=== PATIENT | male | born 1945 | race Caucasian/White ===

== ENCOUNTER 2017-06-27 10:44 | Inpatient (IN) | payer OTHER ==
--- OUTSIDE RECORDS SUMMARY | 2017-06-27 10:47 | XMS REPORT ---
:1945 [facility] Address [address] [place] [address] [address] [place] [address] Care Team Providers Name Role Phone Ariel MORLEY Unavailable Unavailable Problems This patient has no known problems. Allergies, Adverse Reactions, Alerts This patient has no known allergies or adverse reactions. Medications This patient has no known medications. Results Test Description Test Time Test Comments Text Results Atomic Results Result Comments POCT-GLUCOSE METER 2016-07-12 13:08:00 Test Item Value Reference Range Comments POC-GLUCOSE METER (BEAKER) (test 193 mg/dL 70-[address] [facility] [address] [place] [address] bkst=8574) [facility] [address] POCT-GLUCOSE [id number] 08:08:00 Test Item Value Reference Range Comments POC-GLUCOSE METER (BEAKER) 98 mg/dL 70-110 TESTED AT [address] (test ewzp=2745) [facility] [address] BASIC METABOLIC [id number] 05:48:00 Test Item Value Reference Range Comments SODIUM (BEAKER) (test 138 meq/L 136-145 evwu=071) POTASSIUM (BEAKER) (test 4.6 meq/L 3.5-5.1 ukmr=266) CHLORIDE (BEAKER) (test 102 meq/L 98-107 bxgr=490) CO2 (BEAKER) (test 25 meq/L 22-29 qama=361) BLOOD UREA NITROGEN 50 mg/dL 7-21 (BEAKER) (test grho=075) CREATININE (BEAKER) (test 3.24 mg/dL 0.57-1.25 tuqq=153) GLUCOSE RANDOM (BEAKER) 91 mg/dL 70-105 (test wpoi=604) CALCIUM (BEAKER) (test 8.8 mg/dL 8.4-10.2 uamo=137) EGFR (BEAKER) (test 19 mL/min/1.73 sq m ESTIMATED GFR IS NOT tmcx=0970) ACCURATE CREATININE CLEARANCE IN PREDICTING GLOMERULAR FILTRATION RATE. ESTIMATED GFR IS NOT APPLICABLE FOR DIALYSIS PATIENTS. [id number] 05:37:00 Test Item Value Reference Range Comments PHOSPHORUS (BEAKER) (test sryk=620) 4.2 mg/dL 2.3-4.7 [id number] 05:37:00 Test Item Value Reference Range Comments MAGNESIUM (BEAKER) (test mbcw=721) 2.6 mg/dL 1.6-2.6 CBC (HEMOGRAM ONLY)2016-07-12 05:15:00 Test Item Value Reference Range Comments WHITE BLOOD CELL COUNT (BEAKER) (test fuys=862) 16.7 K/ L 4.0-10.0 RED BLOOD CELL COUNT (BEAKER) (test fbba=652) 4.49 M/ L 4.20-5.80 HEMOGLOBIN (BEAKER) (test tsqj=470) 12.0 GM/DL 13.0-16.8 HEMATOCRIT (BEAKER) (test qqow=170) 37.9 % 40.0-50.0 MEAN CORPUSCULAR VOLUME (BEAKER) (test kqtd=756) 84.5 fL 82.0-98.0 MEAN CORPUSCULAR HEMOGLOBIN (BEAKER) (test 26.7 pg 27.0-33.0 bvfe=635) MEAN CORPUSCULAR HEMOGLOBIN CONC (BEAKER) (test 31.6 GM/DL 32.0-36.0 scpi=135) RED CELL DISTRIBUTION WIDTH (BEAKER) (test 18.8 % 10.3-14.2 llai=753) PLATELET COUNT (BEAKER) (test fzfl=591) 299 K/CU MM 150-430 MEAN PLATELET VOLUME (BEAKER) (test ater=075) 8.7 fL 6.5-10.5 NUCLEATED RED BLOOD CELLS (BEAKER) (test 0 /100 WBC 0-0 hqpi=697) 0.000.510.000.000.750.000.000.000.00POCT-GLUCOSE [id number] 21:31:00 Test Item Value Reference Range Comments POC-GLUCOSE METER (BEAKER) 219 mg/dL 70-[address] [facility] [address] [facility] (test ihyi=3652) [facility] [address] POCT-GLUCOSE [id number] 16:56:00 Test Item Value Reference Range Comments POC-GLUCOSE METER (BEAKER) 92 mg/dL 70-110 TESTED AT [address] (test hwxj=2592) [place] [address] POCT-GLUCOSE [id number] 11:51:00 Test Item Value Reference Range Comments POC-GLUCOSE METER (BEAKER) 222 mg/dL 70-110 TESTED AT [address] (test hayp=9134) [place] [address] BASIC METABOLIC [id number] 11:48:00 Test Item Value Reference Range Comments SODIUM (BEAKER) (test 136 meq/L 136-145 kfpv=370) POTASSIUM (BEAKER) (test 4.7 meq/L 3.5-5.1 Specimen slightly uxrw=906) hemolyzed CHLORIDE (BEAKER) (test 103 meq/L 98-107 pyzm=279) CO2 (BEAKER) (test 20 meq/L 22-29 hpqk=138) BLOOD UREA NITROGEN 55 mg/dL 7-21 (BEAKER) (test qjsi=059) CREATININE (BEAKER) (test 3.37 mg/dL 0.57-1.25 Specimen slightly kron=576) hemolyzed GLUCOSE RANDOM (BEAKER) 206 mg/dL 70-105 (test ycob=085) CALCIUM (BEAKER) (test 8.7 mg/dL 8.4-10.2 ksai=334) EGFR (BEAKER) (test 18 mL/min/1.73 sq m ESTIMATED GFR IS NOT ffuq=9496) ACCURATE CREATININE CLEARANCE IN PREDICTING GLOMERULAR FILTRATION RATE. ESTIMATED GFR IS NOT APPLICABLE FOR DIALYSIS PATIENTS. [id number] 11:48:00 Test Item Value Reference Range Comments PHOSPHORUS (BEAKER) (test 3.7 mg/dL 2.3-4.7 Specimen slightly hemolyzed iucd=331) POCT-GLUCOSE [id number] 08:02:00 Test Item Value Reference Range Comments POC-GLUCOSE METER (BEAKER) 100 mg/dL 70-110 TESTED AT [address] (test kyfc=7002) [place] [address] CBC (HEMOGRAM ONLY)2016-07-11 07:45:00 Test Item Value Reference Range Comments WHITE BLOOD CELL COUNT (BEAKER) (test wdfh=300) 21.2 K/ L 4.0-10.0 RED BLOOD CELL COUNT (BEAKER) (test uwpb=615) 4.52 M/ L 4.20-5.80 HEMOGLOBIN (BEAKER) (test zqgx=246) 12.1 GM/DL 13.0-16.8 HEMATOCRIT (BEAKER) (test slov=840) 38.0 % 40.0-50.0 MEAN CORPUSCULAR VOLUME (BEAKER) (test ugwz=391) 84.2 fL 82.0-98.0 MEAN CORPUSCULAR HEMOGLOBIN (BEAKER) (test 26.8 pg 27.0-33.0 jupi=486) MEAN CORPUSCULAR HEMOGLOBIN CONC (BEAKER) (test 31.8 GM/DL 32.0-36.0 wugo=377) RED CELL DISTRIBUTION WIDTH (BEAKER) (test 18.2 % 10.3-14.2 klis=881) PLATELET COUNT (BEAKER) (test euom=066) 256 K/CU MM 150-430 MEAN PLATELET VOLUME (BEAKER) (test vqhy=533) 8.8 fL 6.5-10.5 NUCLEATED RED BLOOD CELLS (BEAKER) (test 0 /100 WBC 0-0 wsxi=360) 0.000.510.000.000.810.000.000.000.00POCT-GLUCOSE [id number] 21:53:00 Test Item Value Reference Range Comments POC-GLUCOSE METER (BEAKER) 146 mg/dL 70-110 TESTED AT [address] (test abiu=9483) [place] [id number] POCT-GLUCOSE [id number] 17:34:00 Test Item Value Reference Range Comments POC-GLUCOSE METER (BEAKER) 83 mg/dL 70-110 TESTED AT [address] (test omol=8027) [facility] [address] POCT-GLUCOSE [id number] 12:03:00 Test Item Value Reference Range Comments POC-GLUCOSE METER (BEAKER) 276 mg/dL 70-110 TESTED AT [address] (test sinx=9877) [place] [address] POCT-GLUCOSE [id number] 07:42:00 Test Item Value Reference Range Comments POC-GLUCOSE METER (BEAKER) 117 mg/dL 70-110 TESTED AT [address] (test bywi=9714) [place] [address] BASIC METABOLIC [id number] 07:13:00 Test Item Value Reference Range Comments SODIUM (BEAKER) (test 138 meq/L 136-145 jsfu=056) POTASSIUM (BEAKER) (test 4.5 meq/L 3.5-5.1 nixe=314) CHLORIDE (BEAKER) (test 101 meq/L 98-107 ncdf=943) CO2 (BEAKER) (test 25 meq/L 22-29 syoy=131) BLOOD UREA NITROGEN 65 mg/dL 7-21 (BEAKER) (test vhom=670) CREATININE (BEAKER) (test 3.78 mg/dL 0.57-1.25 laap=793) GLUCOSE RANDOM (BEAKER) 110 mg/dL 70-105 (test vshy=074) CALCIUM (BEAKER) (test 8.8 mg/dL 8.4-10.2 mhgb=630) EGFR (BEAKER) (test 16 mL/min/1.73 sq m ESTIMATED GFR IS NOT bryt=3166) ACCURATE CREATININE CLEARANCE IN PREDICTING GLOMERULAR FILTRATION RATE. ESTIMATED GFR IS NOT APPLICABLE FOR DIALYSIS PATIENTS. [id number] 07:10:00 Test Item Value Reference Range Comments PHOSPHORUS (BEAKER) (test ghix=959) 3.9 mg/dL 2.3-4.7 B-TYPE NATRIURETIC FACTOR (BNP)2016-07-10 07:08:00 Test Item Value Reference Range Comments B-TYPE NATRIURETIC PEPTIDE (BEAKER) (test 510 pg/mL 0-100 csqg=187) BLOOD [id number] 06:00:00 Test Item Value Reference Range Comments CULTURE (BEAKER) (test sarv=0383) No growth in 5 days CBC (HEMOGRAM ONLY)2016-07-10 05:09:00 Test Item Value Reference Range Comments WHITE BLOOD CELL COUNT (BEAKER) (test evgr=363) 17.9 K/ L 4.0-10.0 RED BLOOD CELL COUNT (BEAKER) (test trlb=086) 4.53 M/ L 4.20-5.80 HEMOGLOBIN (BEAKER) (test wnsj=077) 11.8 GM/DL 13.0-16.8 HEMATOCRIT (BEAKER) (test kiyi=971) 38.0 % 40.0-50.0 MEAN CORPUSCULAR VOLUME (BEAKER) (test jtly=419) 83.9 fL 82.0-98.0 MEAN CORPUSCULAR HEMOGLOBIN (BEAKER) (test 26.0 pg 27.0-33.0 rtbm=807) MEAN CORPUSCULAR HEMOGLOBIN CONC (BEAKER) (test 31.0 GM/DL 32.0-36.0 hioo=960) RED CELL DISTRIBUTION WIDTH (BEAKER) (test 19.5 % 10.3-14.2 wzwe=042) PLATELET COUNT (BEAKER) (test exne=441) 272 K/CU MM 150-430 MEAN PLATELET VOLUME (BEAKER) (test jatx=052) 8.9 fL 6.5-10.5 NUCLEATED RED BLOOD CELLS (BEAKER) (test 0 /100 WBC 0-0 asze=680) 0.000.580.000.000.780.000.000.000.00POCT-GLUCOSE [id number] 21:43:00 Test Item Value Reference Range Comments POC-GLUCOSE METER (BEAKER) 120 mg/dL 70-110 TESTED AT [address] (test gwdj=9312) [place] [address] POCT-GLUCOSE [id number] 16:58:00 Test Item Value Reference Range Comments POC-GLUCOSE METER (BEAKER) 125 mg/dL 70-110 TESTED AT [address] (test cfpn=9171) [place] [address] POCT-GLUCOSE [id number] 12:56:00 Test Item Value Reference Range Comments POC-GLUCOSE METER (BEAKER) 149 mg/dL 70-110 TESTED AT [address] (test ycfj=5082) [place] [address] POCT-GLUCOSE [id number] 08:47:00 Test Item Value Reference Range Comments POC-GLUCOSE METER (BEAKER) 132 mg/dL 70-110 TESTED AT [address] (test xjzv=0738) [place] [address] BASIC METABOLIC [id number] 06:42:00 Test Item Value Reference Range Comments SODIUM (BEAKER) (test 139 meq/L 136-145 dzaa=750) POTASSIUM (BEAKER) (test 4.8 meq/L 3.5-5.1 lyzd=159) CHLORIDE (BEAKER) (test 101 meq/L 98-107 fofz=520) CO2 (BEAKER) (test 24 meq/L 22-29 catu=212) BLOOD UREA NITROGEN 74 mg/dL 7-21 (BEAKER) (test vkvb=658) CREATININE (BEAKER) (test 4.11 mg/dL 0.57-1.25 ciaz=581) GLUCOSE RANDOM (BEAKER) 103 mg/dL 70-105 (test endd=719) CALCIUM (BEAKER) (test 8.8 mg/dL 8.4-10.2 ekwi=647) EGFR (BEAKER) (test 14 mL/min/1.73 sq m ESTIMATED GFR IS NOT jjff=4514) ACCURATE CREATININE CLEARANCE IN PREDICTING GLOMERULAR FILTRATION RATE. ESTIMATED GFR IS NOT APPLICABLE FOR DIALYSIS PATIENTS. [id number] 06:38:00 Test Item Value Reference Range Comments PHOSPHORUS (BEAKER) (test nrps=354) 4.7 mg/dL 2.3-4.7 [id number] 06:38:00 Test Item Value Reference Range Comments MAGNESIUM (BEAKER) (test zuzo=543) 2.3 mg/dL 1.6-2.6 CBC (HEMOGRAM ONLY)2016-07-09 06:02:00 Test Item Value Reference Range Comments WHITE BLOOD CELL COUNT (BEAKER) (test ipia=598) 20.0 K/ L 4.0-10.0 RED BLOOD CELL COUNT (BEAKER) (test gmkq=053) 4.66 M/ L 4.20-5.80 HEMOGLOBIN (BEAKER) (test svye=482) 12.2 GM/DL 13.0-16.8 HEMATOCRIT (BEAKER) (test bqof=519) 38.9 % 40.0-50.0 MEAN CORPUSCULAR VOLUME (BEAKER) (test mqea=077) 83.6 fL 82.0-98.0 MEAN CORPUSCULAR HEMOGLOBIN (BEAKER) (test 26.2 pg 27.0-33.0 oihk=060) MEAN CORPUSCULAR HEMOGLOBIN CONC (BEAKER) (test 31.3 GM/DL 32.0-36.0 ffyh=260) RED CELL DISTRIBUTION WIDTH (BEAKER) (test 18.3 % 10.3-14.2 rczk=666) PLATELET COUNT (BEAKER) (test wcue=217) 257 K/CU MM 150-430 MEAN PLATELET VOLUME (BEAKER) (test nznx=693) 9.1 fL 6.5-10.5 NUCLEATED RED BLOOD CELLS (BEAKER) (test 0 /100 WBC 0-0 gxfy=266) 0.000.530.000.000.760.000.000.000.00POCT-GLUCOSE [id number] 20:58:00 Test Item Value Reference Range Comments POC-GLUCOSE METER (BEAKER) 131 mg/dL 70-110 TESTED AT [address] (test diyd=3016) [facility] [address] POCT-GLUCOSE [id number] 17:15:00 Test Item Value Reference Range Comments POC-GLUCOSE METER (BEAKER) 192 mg/dL 70-110 TESTED AT [address] (test cfqw=5332) [facility] [address] POCT-GLUCOSE [id number] 12:53:00 Test Item Value Reference Range Comments POC-GLUCOSE METER (BEAKER) 135 mg/dL 70-110 TESTED AT [address] (test qqma=7770) [facility] [address] POCT-GLUCOSE [id number] 08:48:00 Test Item Value Reference Range Comments POC-GLUCOSE METER (BEAKER) 113 mg/dL 70-110 TESTED AT [address] (test glmp=5087) [facility] [address] POCT-GLUCOSE [id number] 07:42:00 Test Item Value Reference Range Comments POC-GLUCOSE METER (BEAKER) 122 mg/dL 70-110 TESTED AT [address] (test yxdb=4247) [facility] [address] CBC (HEMOGRAM ONLY)2016-07-08 07:02:00 Test Item Value Reference Range Comments WHITE BLOOD CELL COUNT (BEAKER) (test mdpy=151) 21.1 K/ L 4.0-10.0 RED BLOOD CELL COUNT (BEAKER) (test dnub=139) 4.69 M/ L 4.20-5.80 HEMOGLOBIN (BEAKER) (test onwy=558) 12.1 GM/DL 13.0-16.8 HEMATOCRIT (BEAKER) (test tlwo=076) 39.0 % 40.0-50.0 MEAN CORPUSCULAR VOLUME (BEAKER) (test ecyw=911) 83.2 fL 82.0-98.0 MEAN CORPUSCULAR HEMOGLOBIN (BEAKER) (test 25.8 pg 27.0-33.0 wwng=161) MEAN CORPUSCULAR HEMOGLOBIN CONC (BEAKER) (test 31.0 GM/DL 32.0-36.0 qqwa=511) RED CELL DISTRIBUTION WIDTH (BEAKER) (test 18.1 % 10.3-14.2 wiqk=537) PLATELET COUNT (BEAKER) (test rvym=974) 254 K/CU MM 150-430 MEAN PLATELET VOLUME (BEAKER) (test btth=588) 9.1 fL 6.5-10.5 NUCLEATED RED BLOOD CELLS (BEAKER) (test 0 /100 WBC 0-0 wdfv=966) 0.000.600.000.000.800.000.000.000.00BASIC METABOLIC [id number] 06:26:00 Test Item Value Reference Range Comments SODIUM (BEAKER) (test 137 meq/L 136-145 qdnf=693) POTASSIUM (BEAKER) (test 5.3 meq/L 3.5-5.1 auyi=455) CHLORIDE (BEAKER) (test 102 meq/L 98-107 wokz=671) CO2 (BEAKER) (test 24 meq/L 22-29 qebu=333) BLOOD UREA NITROGEN 69 mg/dL 7-21 (BEAKER) (test iwoj=398) CREATININE (BEAKER) (test 3.86 mg/dL 0.57-1.25 tagu=535) GLUCOSE RANDOM (BEAKER) 112 mg/dL 70-105 (test yzsb=890) CALCIUM (BEAKER) (test 8.8 mg/dL 8.4-10.2 djhd=496) EGFR (BEAKER) (test 16 mL/min/1.73 sq m ESTIMATED GFR IS NOT tbhd=9880) ACCURATE CREATININE CLEARANCE IN PREDICTING GLOMERULAR FILTRATION RATE. ESTIMATED GFR IS NOT APPLICABLE FOR DIALYSIS PATIENTS. [id number] 06:12:00 Test Item Value Reference Range Comments PHOSPHORUS (BEAKER) (test ohrt=835) 4.4 mg/dL 2.3-4.7 [id number] 06:12:00 Test Item Value Reference Range Comments MAGNESIUM (BEAKER) (test dvxf=764) 2.2 mg/dL 1.6-2.6 POCT-GLUCOSE [id number] 20:59:00 Test Item Value Reference Range Comments POC-GLUCOSE METER (BEAKER) 159 mg/dL 70-110 TESTED AT [address] (test rfeo=5937) [place] [id number] POCT-GLUCOSE [id number] 18:17:00 Test Item Value Reference Range Comments POC-GLUCOSE METER (BEAKER) 139 mg/dL 70-110 TESTED AT [address] (test nztb=5835) [place] [address] POCT-GLUCOSE [id number] 16:37:00 Test Item Value Reference Range Comments POC-GLUCOSE METER (BEAKER) 171 mg/dL 70-110 TESTED AT [address] (test qowp=3443) [place] [address] POCT-GLUCOSE [id number] 12:18:00 Test Item Value Reference Range Comments POC-GLUCOSE METER (BEAKER) 190 mg/dL 70-110 TESTED AT [address] (test yqsj=0015) [place] [address] HEMOGLOBIN [id number] 10:02:00 Test Item Value Reference Range Comments HEMOGLOBIN A1C (BEAKER) (test flfc=601) 7.9 % 4.3-6.1 POCT-GLUCOSE [id number] 08:12:00 Test Item Value Reference Range Comments POC-GLUCOSE METER (BEAKER) 103 mg/dL 70-110 TESTED AT [address] (test ulhj=0207) [place] [id number] CBC (HEMOGRAM ONLY)2016-07-07 05:16:00 Test Item Value Reference Range Comments WHITE BLOOD CELL COUNT (BEAKER) (test gvno=874) 21.4 K/ L 4.0-10.0 RED BLOOD CELL COUNT (BEAKER) (test mxwv=832) 4.73 M/ L 4.20-5.80 HEMOGLOBIN (BEAKER) (test olqb=598) 12.2 GM/DL 13.0-16.8 HEMATOCRIT (BEAKER) (test ynpv=159) 39.4 % 40.0-50.0 MEAN CORPUSCULAR VOLUME (BEAKER) (test qjrh=290) 83.1 fL 82.0-98.0 MEAN CORPUSCULAR HEMOGLOBIN (BEAKER) (test 25.8 pg 27.0-33.0 aewl=324) MEAN CORPUSCULAR HEMOGLOBIN CONC (BEAKER) (test 31.0 GM/DL 32.0-36.0 cfrw=203) RED CELL DISTRIBUTION WIDTH (BEAKER) (test 18.1 % 10.3-14.2 hxzz=051) PLATELET COUNT (BEAKER) (test epur=942) 248 K/CU MM 150-430 MEAN PLATELET VOLUME (BEAKER) (test kfnf=757) 9.2 fL 6.5-10.5 NUCLEATED RED BLOOD CELLS (BEAKER) (test 0 /100 WBC 0-0 ffgo=112) 0.000.590.000.000.770.000.000.000.00BASIC METABOLIC [id number] 05:03:00 Test Item Value Reference Range Comments SODIUM (BEAKER) (test 135 meq/L 136-145 tpug=214) POTASSIUM (BEAKER) (test 5.4 meq/L 3.5-5.1 caui=049) CHLORIDE (BEAKER) (test 102 meq/L 98-107 xswm=907) CO2 (BEAKER) (test 22 meq/L 22-29 cngk=209) BLOOD UREA NITROGEN 60 mg/dL 7-21 (BEAKER) (test whtz=632) CREATININE (BEAKER) (test 3.28 mg/dL 0.57-1.25 kepw=810) GLUCOSE RANDOM (BEAKER) 127 mg/dL 70-105 (test pnar=064) CALCIUM (BEAKER) (test 8.9 mg/dL 8.4-10.2 yooa=267) EGFR (BEAKER) (test 19 mL/min/1.73 sq m ESTIMATED GFR IS NOT nims=5642) ACCURATE CREATININE CLEARANCE IN PREDICTING GLOMERULAR FILTRATION RATE. ESTIMATED GFR IS NOT APPLICABLE FOR DIALYSIS PATIENTS. [id number] 05:02:00 Test Item Value Reference Range Comments MAGNESIUM (BEAKER) (test psko=970) 2.0 mg/dL 1.6-2.6 [id number] 05:02:00 Test Item Value Reference Range Comments PHOSPHORUS (BEAKER) (test ezpr=266) 4.2 mg/dL 2.3-4.7 BASIC METABOLIC [id number] 22:00:00 Test Item Value Reference Range Comments SODIUM (BEAKER) (test 135 meq/L 136-145 jkqb=547) POTASSIUM (BEAKER) (test 4.8 meq/L 3.5-5.1 mcjw=819) CHLORIDE (BEAKER) (test 101 meq/L 98-107 ohkj=708) CO2 (BEAKER) (test 24 meq/L 22-29 dvcq=734) BLOOD UREA NITROGEN 60 mg/dL 7-21 (BEAKER) (test okvf=444) CREATININE (BEAKER) (test 3.17 mg/dL 0.57-1.25 nqaq=410) GLUCOSE RANDOM (BEAKER) 120 mg/dL 70-105 (test ynry=143) CALCIUM (BEAKER) (test 8.7 mg/dL 8.4-10.2 gbtj=906) EGFR (BEAKER) (test 20 mL/min/1.73 sq m ESTIMATED GFR IS NOT ksow=2960) ACCURATE CREATININE CLEARANCE IN PREDICTING GLOMERULAR FILTRATION RATE. ESTIMATED GFR IS NOT APPLICABLE FOR DIALYSIS PATIENTS. [id number] 21:59:00 Test Item Value Reference Range Comments PHOSPHORUS (BEAKER) (test rdxw=851) 4.1 mg/dL 2.3-4.7 POCT-GLUCOSE [id number] 21:10:00 Test Item Value Reference Range Comments POC-GLUCOSE METER (BEAKER) 118 mg/dL 70-110 TESTED AT [address] (test yloz=6718) [place] [address] POCT-GLUCOSE [id number] 17:17:00 Test Item Value Reference Range Comments POC-GLUCOSE METER (BEAKER) 213 mg/dL 70-110 TESTED AT [address] (test tkfj=4087) [place] [address] [id number] 14:21:00 Test Item Value Reference Range Comments POTASSIUM (BEAKER) (test pwby=883) 5.4 meq/L 3.5-5.1 POCT-GLUCOSE [id number] 12:26:00 Test Item Value Reference Range Comments POC-GLUCOSE METER (BEAKER) 118 mg/dL 70-110 TESTED AT [address] (test onnw=4375) [place] [address] BASIC METABOLIC [id number] 10:25:00 Test Item Value Reference Range Comments SODIUM (BEAKER) (test 135 meq/L 136-145 pnbz=645) POTASSIUM (BEAKER) (test 5.0 meq/L 3.5-5.1 tuzy=224) CHLORIDE (BEAKER) (test 105 meq/L 98-107 xjee=874) CO2 (BEAKER) (test 21 meq/L 22-29 jfbn=832) BLOOD UREA NITROGEN 53 mg/dL 7-21 (BEAKER) (test csim=540) CREATININE (BEAKER) (test 2.86 mg/dL 0.57-1.25 fdfy=672) GLUCOSE RANDOM (BEAKER) 105 mg/dL 70-105 (test kmna=436) CALCIUM (BEAKER) (test 8.7 mg/dL 8.4-10.2 bzqi=917) EGFR (BEAKER) (test 22 mL/min/1.73 sq m ESTIMATED GFR IS NOT epvu=8589) ACCURATE CREATININE CLEARANCE IN PREDICTING GLOMERULAR FILTRATION RATE. ESTIMATED GFR IS NOT APPLICABLE FOR DIALYSIS PATIENTS. [id number] 10:24:00 Test Item Value Reference Range Comments PHOSPHORUS (BEAKER) (test hkfi=866) 3.4 mg/dL 2.3-4.7 POCT-GLUCOSE [id number] 08:43:00 Test Item Value Reference Range Comments POC-GLUCOSE METER (BEAKER) 93 mg/dL 70-[address] [facility] [address] [facility] (test nmfl=1653) [facility] [address] [id number] 06:11:00 Test Item Value Reference Range Comments PARTIAL THROMBOPLASTIN TIME (BEAKER) (test 63.0 seconds 22.5-36.0 ogez=622) BASIC METABOLIC [id number] 04:24:00 Test Item Value Reference Range Comments SODIUM (BEAKER) (test 134 meq/L 136-145 gxke=356) POTASSIUM (BEAKER) (test 5.3 meq/L 3.5-5.1 faji=717) CHLORIDE (BEAKER) (test 105 meq/L 98-107 ralk=511) CO2 (BEAKER) (test 17 meq/L 22-29 inni=372) BLOOD UREA NITROGEN 55 mg/dL 7-21 (BEAKER) (test ojxm=792) CREATININE (BEAKER) (test 2.96 mg/dL 0.57-1.25 hnvy=628) GLUCOSE RANDOM (BEAKER) 111 mg/dL 70-105 (test akgb=903) CALCIUM (BEAKER) (test 8.7 mg/dL 8.4-10.2 zlkd=247) EGFR (BEAKER) (test 21 mL/min/1.73 sq m ESTIMATED GFR IS NOT gkxj=4908) ACCURATE CREATININE CLEARANCE IN PREDICTING GLOMERULAR FILTRATION RATE. ESTIMATED GFR IS NOT APPLICABLE FOR DIALYSIS PATIENTS. CBC (HEMOGRAM ONLY)2016-07-06 04:12:00 Test Item Value Reference Range Comments WHITE BLOOD CELL COUNT (BEAKER) (test tiwr=196) 22.6 K/ L 4.0-10.0 RED BLOOD CELL COUNT (BEAKER) (test xftq=114) 4.46 M/ L 4.20-5.80 HEMOGLOBIN (BEAKER) (test lztt=407) 11.6 GM/DL 13.0-16.8 HEMATOCRIT (BEAKER) (test lsdw=850) 37.7 % 40.0-50.0 MEAN CORPUSCULAR VOLUME (BEAKER) (test pizi=804) 84.7 fL 82.0-98.0 MEAN CORPUSCULAR HEMOGLOBIN (BEAKER) (test 26.0 pg 27.0-33.0 lrii=105) MEAN CORPUSCULAR HEMOGLOBIN CONC (BEAKER) (test 30.7 GM/DL 32.0-36.0 fhdk=592) RED CELL DISTRIBUTION WIDTH (BEAKER) (test 19.3 % 10.3-14.2 xcth=246) PLATELET COUNT (BEAKER) (test frgf=509) 261 K/CU MM 150-430 MEAN PLATELET VOLUME (BEAKER) (test mwpm=711) 9.0 fL 6.5-10.5 NUCLEATED RED BLOOD CELLS (BEAKER) (test 0 /100 WBC 0-0 cqmi=919) 0.000.590.000.[id number] 23:27:00 Test Item Value Reference Range Comments POTASSIUM (BEAKER) (test ifee=956) 5.2 meq/L 3.5-5.1 [id number] 23:27:00 Test Item Value Reference Range Comments PARTIAL THROMBOPLASTIN TIME (BEAKER) (test 47.0 seconds 22.5-36.0 ntqc=321) POCT-GLUCOSE [id number] 22:11:00 Test Item Value Reference Range Comments POC-GLUCOSE METER (BEAKER) 141 mg/dL 70-110 TESTED AT [address] (test cpko=8608) [facility] [address] BASIC METABOLIC [id number] 20:35:00 Test Item Value Reference Range Comments SODIUM (BEAKER) (test 135 meq/L 136-145 jult=356) POTASSIUM (BEAKER) (test 5.7 meq/L 3.5-5.1 keax=928) CHLORIDE (BEAKER) (test 104 meq/L 98-107 wlqz=845) CO2 (BEAKER) (test 19 meq/L 22-29 ybja=266) BLOOD UREA NITROGEN 54 mg/dL 7-21 (BEAKER) (test xrkm=844) CREATININE (BEAKER) (test 2.99 mg/dL 0.57-1.25 fswa=876) GLUCOSE RANDOM (BEAKER) 198 mg/dL 70-105 (test gaxd=098) CALCIUM (BEAKER) (test 8.9 mg/dL 8.4-10.2 bkoj=916) EGFR (BEAKER) (test 21 mL/min/1.73 sq m ESTIMATED GFR IS NOT trjd=1362) ACCURATE CREATININE CLEARANCE IN PREDICTING GLOMERULAR FILTRATION RATE. ESTIMATED GFR IS NOT APPLICABLE FOR DIALYSIS PATIENTS. [id number] 20:33:00 Test Item Value Reference Range Comments PHOSPHORUS (BEAKER) (test voqc=103) 3.5 mg/dL 2.3-4.7 [id number] 17:54:00 Test Item Value Reference Range Comments POTASSIUM (BEAKER) (test oyis=230) 5.5 meq/L 3.5-5.1 [id number] 17:51:00 Test Item Value Reference Range Comments PARTIAL THROMBOPLASTIN TIME (BEAKER) (test 33.0 seconds 22.5-36.0 ddeh=626) POCT-GLUCOSE [id number] 17:33:00 Test Item Value Reference Range Comments POC-GLUCOSE METER (BEAKER) 128 mg/dL 70-110 TESTED AT [address] (test krae=1731) [place] [id number] BASIC METABOLIC [id number] 15:17:00 Test Item Value Reference Range Comments SODIUM (BEAKER) (test 136 meq/L 136-145 dlll=017) POTASSIUM (BEAKER) (test 5.5 meq/L 3.5-5.1 zjtr=156) CHLORIDE (BEAKER) (test 105 meq/L 98-107 duhb=178) CO2 (BEAKER) (test 20 meq/L 22-29 pnme=645) BLOOD UREA NITROGEN 43 mg/dL 7-21 (BEAKER) (test ipin=389) CREATININE (BEAKER) (test 2.39 mg/dL 0.57-1.25 wely=408) GLUCOSE RANDOM (BEAKER) 218 mg/dL 70-105 (test nkbl=140) CALCIUM (BEAKER) (test 9.1 mg/dL 8.4-10.2 lyjz=708) EGFR (BEAKER) (test 27 mL/min/1.73 sq m ESTIMATED GFR IS NOT kyoz=5089) ACCURATE CREATININE CLEARANCE IN PREDICTING GLOMERULAR FILTRATION RATE. ESTIMATED GFR IS NOT APPLICABLE FOR DIALYSIS PATIENTS. [id number] 14:21:00 Test Item Value Reference Range Comments POTASSIUM (BEAKER) (test kpgj=051) 5.5 meq/L 3.5-5.1 POCT-GLUCOSE [id number] 12:12:00 Test Item Value Reference Range Comments POC-GLUCOSE METER (BEAKER) 157 mg/dL 70-110 TESTED AT [address] (test qqjx=1395) [place] [address] [id number] 12:03:00 Test Item Value Reference Range Comments PARTIAL THROMBOPLASTIN TIME (BEAKER) (test 28.1 seconds 22.5-36.0 umrz=141) Prior to initiating heparinPOCT-GLUCOSE [id number] 08:33:00 Test Item Value Reference Range Comments POC-GLUCOSE METER (BEAKER) 170 mg/dL 70-110 TESTED AT [address] (test wbkp=6006) [place] [address] [id number] 04:45:00 Test Item Value Reference Range Comments POTASSIUM (BEAKER) (test geqa=868) 6.0 meq/L 3.5-5.1 BASIC METABOLIC [id number] 04:44:00 Test Item Value Reference Range Comments SODIUM (BEAKER) (test 136 meq/L 136-145 enra=502) POTASSIUM (BEAKER) (test 6.0 meq/L 3.5-5.1 xvmx=348) CHLORIDE (BEAKER) (test 108 meq/L 98-107 hzcp=311) CO2 (BEAKER) (test 18 meq/L 22-29 clpk=822) BLOOD UREA NITROGEN 55 mg/dL 7-21 (BEAKER) (test rbpt=396) CREATININE (BEAKER) (test 2.74 mg/dL 0.57-1.25 ivqw=855) GLUCOSE RANDOM (BEAKER) 198 mg/dL 70-105 (test ouce=325) CALCIUM (BEAKER) (test 9.4 mg/dL 8.4-10.2 qtsj=592) EGFR (BEAKER) (test 23 mL/min/1.73 sq m ESTIMATED GFR IS NOT apbf=3987) ACCURATE CREATININE CLEARANCE IN PREDICTING GLOMERULAR FILTRATION RATE. ESTIMATED GFR IS NOT APPLICABLE FOR DIALYSIS PATIENTS. CBC (HEMOGRAM ONLY)2016-07-05 04:21:00 Test Item Value Reference Range Comments WHITE BLOOD CELL COUNT (BEAKER) (test nlnc=667) 33.0 K/ L 4.0-10.0 RED BLOOD CELL COUNT (BEAKER) (test ymvt=507) 4.47 M/ L 4.20-5.80 HEMOGLOBIN (BEAKER) (test pwgk=395) 11.8 GM/DL 13.0-16.8 HEMATOCRIT (BEAKER) (test jzfh=489) 37.1 % 40.0-50.0 MEAN CORPUSCULAR VOLUME (BEAKER) (test lxgr=622) 83.0 fL 82.0-98.0 MEAN CORPUSCULAR HEMOGLOBIN (BEAKER) (test 26.4 pg 27.0-33.0 bvyp=177) MEAN CORPUSCULAR HEMOGLOBIN CONC (BEAKER) (test 31.7 GM/DL 32.0-36.0 ntmd=465) RED CELL DISTRIBUTION WIDTH (BEAKER) (test 18.4 % 10.3-14.2 bumz=206) PLATELET COUNT (BEAKER) (test bilx=185) 314 K/CU MM 150-430 MEAN PLATELET VOLUME (BEAKER) (test feez=635) 9.1 fL 6.5-10.5 NUCLEATED RED BLOOD CELLS (BEAKER) (test 0 /100 WBC 0-0 ricv=567) 0.000.750.00[id number] 00:20:00 Test Item Value Reference Range Comments POTASSIUM (BEAKER) (test flxm=451) 6.8 meq/L 3.5-5.1 POCT-GLUCOSE [id number] 23:59:00 Test Item Value Reference Range Comments POC-GLUCOSE METER (BEAKER) 213 mg/dL 70-[address] [facility] [address] [facility] (test oqnk=2431) [facility] [address] [id number] 20:58:00 Test Item Value Reference Range Comments PHOSPHORUS (BEAKER) (test nrua=963) 5.6 mg/dL 2.3-4.7 BASIC METABOLIC [id number] 19:45:00 Test Item Value Reference Range Comments SODIUM (BEAKER) (test 134 meq/L 136-145 rvea=928) POTASSIUM (BEAKER) (test 8.2 meq/L 3.5-5.1 Specimen not hemolyzed iwtf=134) CHLORIDE (BEAKER) (test 111 meq/L 98-107 ujik=629) CO2 (BEAKER) (test 14 meq/L 22-29 omem=849) BLOOD UREA NITROGEN 82 mg/dL 7-21 (BEAKER) (test ihyn=944) CREATININE (BEAKER) (test 4.18 mg/dL 0.57-1.25 npij=765) GLUCOSE RANDOM (BEAKER) 247 mg/dL 70-105 (test fkdf=604) CALCIUM (BEAKER) (test 9.7 mg/dL 8.4-10.2 mljy=098) EGFR (BEAKER) (test 14 mL/min/1.73 sq m ESTIMATED GFR IS NOT gtqj=4646) ACCURATE CREATININE CLEARANCE IN PREDICTING GLOMERULAR FILTRATION RATE. ESTIMATED GFR IS NOT APPLICABLE FOR DIALYSIS PATIENTS. [id number] 19:40:00 Test Item Value Reference Range Comments MAGNESIUM (BEAKER) (test txzl=907) 2.6 mg/dL 1.6-2.6 HEPATIC FUNCTION [id number] 19:40:00 Test Item Value Reference Range Comments TOTAL PROTEIN (BEAKER) (test wjbs=063) 7.7 gm/dL 6.0-8.3 ALBUMIN (BEAKER) (test jime=8407) 3.7 g/dL 3.5-5.0 BILIRUBIN TOTAL (BEAKER) (test olin=439) 0.4 mg/dL 0.2-1.2 BILIRUBIN DIRECT (BEAKER) (test olkv=472) 0.2 mg/dL 0.1-0.5 ALKALINE PHOSPHATASE (BEAKER) (test kyta=153) 75 U/L 40-150 AST (SGOT) (BEAKER) (test kupy=035) 24 U/L 5-34 ALT (SGPT) (BEAKER) (test nzet=538) 62 U/L 6-55 POTASSIUM-STAT [id number] 19:26:00 Test Item Value Reference Range Comments POTASSIUM (BEAKER) (test fkih=253) 8.3 meq/L 3.6-5.5 NO HEMOLYSIS BLOOD GAS, [id number] 19:22:00 Test Item Value Reference Range Comments PH ARTERIAL (BEAKER) (test ywxz=484) 7.29 7.35-7.45 PCO2 ARTERIAL (BEAKER) (test gsbl=432) 36 mmHg 35-45 PO2 ARTERIAL (BEAKER) (test ubtb=532) 264 mmHg 80-90 O2 SATURATION ARTERIAL (BEAKER) (test aknv=219) 99.5 % 96.0-97.0 HCO3 ARTERIAL (BEAKER) (test otkk=335) 17 mmol/L 21-29 BASE EXCESS ARTERIAL (BEAKER) (test mwri=599) -8.9 mmol/L -2.0-3.0 PATIENT TEMPERATURE (BEAKER) (test rhuo=3919) 37.0 C FIO2 (BEAKER) (test gbgc=8991) 100.0 % CALCIUM, [id number] 19:22:00 Test Item Value Reference Range Comments CALCIUM IONIZED (BEAKER) (test ggyj=535) 1.34 mmol/L 1.12-1.27 PH, BLOOD (BEAKER) (test nypl=9859) 7.29 SODIUM NA-STAT [id number] 19:22:00 Test Item Value Reference Range Comments SODIUM (BEAKER) (test bqmo=581) 134 meq/L 135-148 GLUCOSE-STAT [id number] 19:22:00 Test Item Value Reference Range Comments GLUCOSE RANDOM (BEAKER) (test urfo=769) 243 mg/dL 70-110 HGB/HCT (H&H) - STAT [id number] 19:22:00 Test Item Value Reference Range Comments HEMOGLOBIN (BEAKER) (test gfkz=577) 12.2 g/dL 13.0-16.8 HEMATOCRIT (BEAKER) (test vjrn=439) 36.0 % 40.0-50.0 [id number] 17:26:00 Test Item Value Reference Range Comments POTASSIUM (BEAKER) (test dela=445) 8.2 meq/L 3.6-5.5 NO HEMOLYSIS BLOOD GAS, [id number] 17:22:00 Test Item Value Reference Range Comments PH ARTERIAL (BEAKER) (test oxxm=010) 7.30 7.35-7.45 PCO2 ARTERIAL (BEAKER) (test mjrx=896) 38 mmHg 35-45 PO2 ARTERIAL (BEAKER) (test mzhk=185) 274 mmHg 80-90 O2 SATURATION ARTERIAL (BEAKER) (test nech=291) 99.6 % 96.0-97.0 HCO3 ARTERIAL (BEAKER) (test vhrx=877) 18 mmol/L 21-29 BASE EXCESS ARTERIAL (BEAKER) (test afdo=757) -7.7 mmol/L -2.0-3.0 PATIENT TEMPERATURE (BEAKER) (test sfgq=7049) 37.0 C FIO2 (BEAKER) (test kmyf=8840) 100.0 % POCT-GLUCOSE [id number] 16:29:00 Test Item Value Reference Range Comments POC-GLUCOSE METER (BEAKER) 474 mg/dL 70-[address] [facility] [address] [place] [address] (test pfza=8057) [facility] [address] POTASSIUM-STAT [id number] 15:53:00 Test Item Value Reference Range Comments POTASSIUM (BEAKER) (test qimj=241) 9.5 meq/L 3.6-5.5 NO HEMOLYSIS KETONE, [id number] 15:44:00 Test Item Value Reference Range Comments KETONES, BLOOD (BEAKER) (test tqao=7216) 0.3 mmol/L <0.4 BASIC METABOLIC [id number] 15:35:00 Test Item Value Reference Range Comments SODIUM (BEAKER) (test 131 meq/L 136-145 ofev=172) POTASSIUM (BEAKER) (test 9.0 meq/L 3.5-5.1 ygvx=133) CHLORIDE (BEAKER) (test 109 meq/L 98-107 wjvs=697) CO2 (BEAKER) (test 14 meq/L 22-29 hlmc=008) BLOOD UREA NITROGEN 80 mg/dL 7-21 (BEAKER) (test kgnn=584) CREATININE (BEAKER) 4.51 mg/dL 0.57-1.25 (test aunq=004) GLUCOSE RANDOM (BEAKER) 470 mg/dL 70-105 (test gjee=681) CALCIUM (BEAKER) (test 9.4 mg/dL 8.4-10.2 xyjv=658) EGFR (BEAKER) (test 13 mL/min/1.73 sq m INSUFFICIENT CLINICAL DATA ibyb=9560) TO CALCULATE ESTIMATED GFR. CREATINE KINASE (CK), TOTAL AND [id number] 15:32:00 Test Item Value Reference Range Comments CREATINE KINASE TOTAL (BEAKER) (test pqag=876) 11 U/L 29-200 CREATINE KINASE-MB (BEAKER) (test vtoo=992) 1.4 ng/mL 0.0-6.6 CREATINE KINASE-MB INDEX (BEAKER) (test uxdw=752) 12.7 % Effective 02/19/2014: CK-MB Reference Range ChangeNew: 0.0-6.6 Previous: 0.0- 4.9CK-MB Reference Range:<6.7 Normal6.7-10.0 Borderline>10.0 AbnormalCBC W/PLT COUNT & AUTO [id number] 15:30:00 Test Item Value Reference Range Comments WHITE BLOOD CELL COUNT (BEAKER) (test hedj=156) 23.5 K/ L 4.0-10.0 RED BLOOD CELL COUNT (BEAKER) (test pwyh=452) 4.62 M/ L 4.20-5.80 HEMOGLOBIN (BEAKER) (test ztms=015) 11.8 GM/DL 13.0-16.8 HEMATOCRIT (BEAKER) (test rwgp=157) 39.1 % 40.0-50.0 MEAN CORPUSCULAR VOLUME (BEAKER) (test qxnc=660) 84.7 fL 82.0-98.0 MEAN CORPUSCULAR HEMOGLOBIN (BEAKER) (test 25.6 pg 27.0-33.0 dszx=842) MEAN CORPUSCULAR HEMOGLOBIN CONC (BEAKER) (test 30.2 GM/DL 32.0-36.0 mpua=474) RED CELL DISTRIBUTION WIDTH (BEAKER) (test 19.4 % 10.3-14.2 rwxs=207) PLATELET COUNT (BEAKER) (test lxkw=708) 350 K/CU MM 150-430 MEAN PLATELET VOLUME (BEAKER) (test yojy=694) 9.0 fL 6.5-10.5 NUCLEATED RED BLOOD CELLS (BEAKER) (test 1 /100 WBC 0-0 iqic=011) NEUTROPHILS RELATIVE PERCENT (BEAKER) (test 92 % ykjf=660) LYMPHOCYTES RELATIVE PERCENT (BEAKER) (test 4 % owag=539) MONOCYTES RELATIVE PERCENT (BEAKER) (test 3 % pqoe=846) EOSINOPHILS RELATIVE PERCENT (BEAKER) (test 0 % cqic=861) BASOPHILS RELATIVE PERCENT (BEAKER) (test 0 % figw=134) NEUTROPHILS ABSOLUTE COUNT (BEAKER) (test 21.70 K/ L 1.80-8.00 pgct=478) LYMPHOCYTES ABSOLUTE COUNT (BEAKER) (test 0.98 K/ L 1.48-4.50 exvf=517) MONOCYTES ABSOLUTE COUNT (BEAKER) (test 0.67 K/ L 0.00-1.30 uzvh=509) EOSINOPHILS ABSOLUTE COUNT (BEAKER) (test 0.11 K/ L 0.00-0.50 plxj=340) BASOPHILS ABSOLUTE COUNT (BEAKER) (test 0.06 K/ L 0.00-0.20 jlfi=009) TROPONIN [id number] 15:29:00 Test Item Value Reference Range Comments TROPONIN I (BEAKER) (test vpio=224) 0.03 ng/mL 0.00-0.03 Effective 02/19/2014: Reference Range ChangeNew: 0.00-0.03 Previous 0.00- 0.15Troponin I (TnI) levels must be interpreted in the context of the presenting symptoms and the clinical findings. Elevated TnI levels indicate myocardial damage, but are not specific for ischemic heart disease. Elevated TnI levels are seen in patients with other cardiac conditions (including myocarditis and congestive heartfailure), and slight TnI elevations occur in patients with other conditions, including sepsis, renalfailure, acidosis, acute neurological disease, and persistent tachyarrhythmia.B-TYPE NATRIURETIC FACTOR ( BNP)2016-07-04 15:29:00 Test Item Value Reference Range Comments B-TYPE NATRIURETIC PEPTIDE (BEAKER) (test 1748 pg/mL 0-100 tqlx=783) [id number] 15:23:00 Test Item Value Reference Range Comments MAGNESIUM (BEAKER) (test zxrh=266) 2.4 mg/dL 1.6-2.6 [id number] 15:22:00 Test Item Value Reference Range Comments PROTIME (BEAKER) (test egom=345) 14.6 seconds 11.7-14.7 INR (BEAKER) (test nqfp=630) 1.2 <=5.9 PARTIAL THROMBOPLASTIN TIME (BEAKER) (test 27.2 seconds 22.5-36.0 xett=405) RECOMMENDED COUMADIN/WARFARIN INR THERAPY RANGESSTANDARD DOSE: 2.0 - 3.0 Includes: PROPHYLAXIS forvenous thrombosis, systemic embolization; TREATMENT for venous thrombosis and/or pulmonary embolus.HIGH RISK: Target INR is 2.5-3.5 for patients with mechanical heart valves.
[2017-06-27] MEDS ORDERED: NA CHLORIDE 0.9% 1,000 ML ONE (11:21)
[2017-06-27 11:30] LABS: Absolute Lymphocytes (CBC) 2.7 K/uL (0.7-4.9); Absolute Monocytes 2.6 K/uL (0.1-1.3); Absolute Neutrophil 20.4 K/uL (1.8-8.0); Basophils % 1.5 % (0-1.3); Eosinophils % 2.1 % (0-4.4); Hematocrit 40.9 % (39.6-49.0); MCH 19.7 pg (27.0-35.0); MCV 67.2 fL (80-100); MPV 8.6 fL (7.6-11.3); Monocytes % 9.7 % (3.3-12.3); RBC Red Blood Cell Count 6.09 M/uL (4.33-5.43)
[2017-06-27 11:35] LABS: Protime INR 1.2
[2017-06-27] MEDS ORDERED: ACETAMINOPHEN 325 MG TABLET ONE (11:38)
--- NOTE | 2017-06-27 11:43 | RAD REPORT ---
EXAM DESCRIPTION: RAD - Chest Single View - 06/27/2017 11:11 am CLINICAL HISTORY: Cough, shortness of breath COMPARISON: June 18 TECHNIQUE: AP portable chest image was obtained 1106 hours . FINDINGS: No peripheral mass or consolidation. No pulmonary edema pattern seen. Double-lumen dialysi s catheter remains in place. The left subclavian defibrillator remains in place. Heart and vasculatur e are normal. No measurable pleural effusion and no pneumothorax. No gross bony abnormality seen. No acute aortic findings suspected. IMPRESSION: No acute cardiopulmonary process. No significant change from prior imaging.
[2017-06-27 12:00] LABS: Urine Blood NEGATIVE (NEG); Urine Glucose NEGATIVE (NEG); Urine Protein 2+ (NEG); Urine Specific Gravity 1.025 (1.005-1.030)
--- NOTE | 2017-06-27 12:09 | ER ---
Nurse's Notes [facility] Name: Dieudonne Sánchez Age: 71 yrs Sex: Male : 1945 Arrival Date: 06/27/2017 Time: 10:47 Bed 2 Private MD: Diagnosis: Weakness;Fever, unspecified;End stage renal disease;Elevated white blood cell count;Hyperkalemia Presentation: 06/27 10:47 Presenting complaint: EMS states: He was here last week for sepsis. He is c/o increased jl7 weakness. He gets dialysis M/W/F, last time was Tuesday. Transition of care: patient was not received from another setting of care. Onset of symptoms was June 27, 2017. Care prior to arrival: None. 10:47 Method Of Arrival: EMS: [facility] jl7 10:47 Acuity: OLIVIA 3 jl7 Historical: - Allergies: 10:53 Ciprofloxacin HCl; jl7 10:53 Metformin HCl; jl7 10:53 shellfish derived; jl7 - Home Meds: 11:12 Ventolin HFA 90 mcg/actuation Nebulizer HFAA 2 puffs every 4-6 hours [Active]; jl7 allopurinol 100 mg Oral tab 0.5 tab once daily [Active]; amiodarone 200 mg Oral tab 1 tab once daily [Active]; aspirin 81 mg Oral TbEC 1 tab once daily [Active]; atorvastatin 20 mg Oral tab 1 tab once daily [Active]; gabapentin 300 mg Oral cap 1 cap 3 times per day [Active]; chondroitin glucosamide 1500mg/1200 mg 1 tab PO twice a day [Active]; hydrocodone-acetaminophen 10-325 mg Oral tab [Active]; Tresiba FlexTouch U-200 200 unit/mL (3 mL) subcutaneous inpn daily [Active]; levothyroxine 25 mcg tab 1 tab once daily [Active]; loratadine 10 mg Oral TbDL 1 tab once daily [Active]; Multiple Vitamins Oral tab daily [Active]; prednisone 5 mg Oral tab 1 tab 2 times per day [Active]; ranitidine HCl 300 mg Oral cap 1 cap once daily [Active]; Incruse Ellipta 62.5 mcg/actuation inhalation dsdv 1 puff once daily [Active]; - PMHx: 10:53 Asthma; Hypertension; Diabetes - IDDM; COPD; CHF; ESRD; jl7 - PSHx: 10:53 Colostomy; pacemaker/defib; perf'd colon; hip replacement; Hernia repair; jl7 - Immunization history:: Adult Immunizations up to date. - Social history:: Smoking status: Patient/guardian denies using tobacco. - Family history:: not pertinent. Screenin:45 Abuse screen: Denies threats or abuse. Denies injuries from another. Nutritional jl7 screening: No deficits noted. Tuberculosis screening: No symptoms or risk factors identified. Fall Risk IV access (20 points). Gait- Weak (10 pts.). Mental Status- Oriented to own ability (0 pts). Total Wise Fall Scale indicates Low Risk Score (25-44 pts). Fall prevention measures have been instituted. Side Rails Up X 2 Placed close to Nursing Station Frequent Obs/Assesments occuring Family Present and informed to notify staff if they need to leave bedside As available Patient and Family Educated on Fall Prevention Program and strategies. Assessment: 10:45 General: Appears uncomfortable, Behavior is calm, cooperative, appropriate for age. jl7 Pain: Complains of pain in coccyx Pain does not radiate. Pain currently is 5 out of 10 on a pain scale. Is continuous. Neuro: Level of Consciousness is awake, alert, obeys commands, Oriented to person, place, time, situation. Cardiovascular: Heart tones S1 S2 present Patient's skin is warm and dry. Edema is 1+ to left forearm, left wrist and left hand. Respiratory: Airway is patent Respiratory effort is even, unlabored, Respiratory pattern is regular, symmetrical, Breath sounds are clear bilaterally. GI: Colostomy site Ostomy appliance is intact. : No signs and/or symptoms were reported regarding the genitourinary system. EENT: No signs and/or symptoms were reported regarding the EENT system. Derm: Skin is pink, warm \T\ dry. Musculoskeletal: No signs and/or symptoms reported regarding the musculoskeletal system. 11:15 Reassessment: Pt reports taking 1 gram Tylenol at approx. 1000 this morning. jl7 12:00 Reassessment: No changes from previously documented assessment. Patient and/or family jl7 updated on plan of care and expected duration. Pain level reassessed. Patient is alert, oriented x 3, equal unlabored respirations, skin warm/dry/pink. 13:00 Reassessment: Patient and/or family updated on plan of care and expected duration. Pain jl7 level reassessed. Patient is alert, oriented x 3, equal unlabored respirations, skin warm/dry/pink. 14:04 Reassessment: Patient and/or family updated on plan of care and expected duration. Pain jl7 level reassessed. Patient is alert, oriented x 3, equal unlabored respirations, skin warm/dry/pink. Vital Signs: 10:53 BP 109 / 65; Pulse 86; Resp 20; Pulse Ox 93% ; Weight 74.39 kg; Height 6 ft. 0 in. jl7 (182.88 cm); Pain 5/10; 10:58 Temp 99.3(O); jl7 12:00 BP 112 / 70; Pulse 84; Resp 16; Pulse Ox 98% on 2 lpm NC; jl7 13:00 BP 103 / 72; Pulse 87; Resp 16 S; Temp 98.5(O); Pulse Ox 99% on 2 lpm NC; jl7 14:04 BP 106 / 56; Pulse 82; Resp 18; Pulse Ox 97% on 2 lpm NC; jl7 10:53 Body Mass Index 22.24 (74.39 kg, 182.88 cm) jl7 ED Course: 10:45 Patient has correct armband on for positive identification. Placed in gown. Bed in low jl7 position. Call light in reach. Side rails up X2. monitor technician on. Pulse ox on. NIBP on. 10:47 Patient arrived in ED. jl7 10:49 Triage completed. jl7 10:50 Initial lab(s) drawn, by wi, sent to lab. First set of blood cultures drawn by wi. jb1 10:53 Kenny Dietrich MD is Attending Physician. jeffy 10:54 Arm band placed on right wrist. jl7 10:57 Mane Riley, KAEL is Primary Nurse. jl7 11:05 Second set of blood cultures drawn by wi. jb1 11:11 X-ray completed. Portable x-ray completed in exam room. kw1 11:11 XRAY Chest (1 view) In Process Unspecified. EDMS 11:13 Inserted saline lock: 22 gauge in right forearm, using aseptic technique. Blood jb1 collected. 11:13 EKG done, by ED staff, reviewed by Kenny Dietrich MD. jb1 12:07 Marino Medina MD is Hospitalizing Provider. [facility] 14:42 No provider procedures requiring assistance completed. Patient admitted, IV remains in jl7 place. intact, No redness/swelling at site. Administered Medications: 11:33 Drug: NS 0.9% 1000 ml Route: IV; Rate: 75 ml/hr; Site: right forearm; jl7 14:34 Follow up: IV Status: Infusion continued upon admission jl7 12:45 Drug: D50W 50 ml Route: IVP; Site: right forearm; ae1 14:29 Follow up: Response: No adverse reaction jl7 12:48 Drug: Insulin Regular Human 10 units {Co-Signature: ae1 (Charan Cisneros RN).} Route: jl7 IVP; Site: right forearm; 14:45 Follow up: Response: No adverse reaction jl7 12:48 Drug: Albuterol - atroVENT (3:1) (2.5 mg - 0.5 mg) 3 ml Route: Nebulizer; ae1 14:33 Follow up: Response: No adverse reaction jl7 12:55 Drug: Lasix 100 mg Route: IVP; Site: right forearm; ae1 14:33 Follow up: Response: No adverse reaction jl7 12:59 Drug: vancoMYCIN 1 grams Route: IVPB; Infused Over: 2 hrs; Site: right forearm; ae1 14:28 Follow up: IV Status: Infusion continued upon admission jl7 13:40 Drug: Cefepime 1 grams Route: IVPB; Rate: 200 ml/hr; Infused Over: 2 mins; Site: right jl7 forearm; 13:42 Follow up: IV Status: Completed infusion jl7 14:29 Follow up: Response: No adverse reaction jl7 13:42 Drug: Cefepime 1 grams Route: IVPB; Rate: 200 ml/hr; Infused Over: 2 mins; Site: right jl7 forearm; 13:45 Follow up: Response: No adverse reaction; IV Status: Completed infusion jl7 14:29 Follow up: IV Status: Completed infusion jl7 14:20 Drug: Kayexalate 45 grams Route: PO; jl7 14:45 Follow up: Response: No adverse reaction jl7 14:33 Not Given (Patient Refused): Tylenol 650 mg PO once jl7 Point of Care Testing: Blood Glucose: 11:21 Blood Glucose: 107 mg/dL; jb1 Ranges: Outcome: 12:09 Decision to Hospitalize by Provider. jeffy 14:42 Admitted to Med/surg accompanied by tech, family with patient, via stretcher, room 209, jl7 with oxygen, with chart, Report called to Nurse Tash 14:42 Condition: stable 14:42 Discharge instructions given to patient, family, Instructed on the need for admit, Demonstrated understanding of instructions. 14:43 Patient left the ED. jl7 Signatures: Dispatcher [employer] EDMS Jeffery Campuzano jb1 Kenny Dietrich MD MD cha Elliott, Andrea, RN RN ae1 Mane Riley RN RN jl7 Yakelin Camp 1 Charan Cisneros RN ae1 Corrections: (The following items were deleted from the chart) 10:59 10:47 Care prior to arrival: None. jl7 jl7 14:29 14:29 IV Status: Completed infusion jl7 jl7
--- NOTE | 2017-06-27 12:09 | EDPHYS ---
Physician Documentation [facility] Name: Dieudonne Sánchez Age: 71 yrs Sex: Male : 1945 Arrival Date: 06/27/2017 Time: 10:47 Bed 2 Private MD: ED Physician Kenny Dietrich HPI: 06/27 11:59 This 71 yrs old Male presents to ER via EMS with complaints of fever, jeffy weakness and sore throat. 11:59 This 71 yrs old Male presents to ER via EMS with complaints of fever, jeffy weakness and sore throat. 11:59 The patient presents with pain. The problem is located in the left buccal mucosa and jeffy right buccal mucosa. Onset: The symptoms/episode began/occurred 2 day(s) ago. Duration: The symptoms are continuous, and are unchanged since they started. Modifying factors: The symptoms are alleviated by. Severity of symptoms: At their worst the symptoms were mild, in the emergency department the symptoms are unchanged. Associated signs and symptoms: The patient has no apparent associated signs or symptoms. Historical: - Allergies: 10:53 Ciprofloxacin HCl; jl7 10:53 Metformin HCl; jl7 10:53 shellfish derived; jl7 - Home Meds: 11:12 Ventolin HFA 90 mcg/actuation Nebulizer HFAA 2 puffs every 4-6 hours [Active]; jl7 allopurinol 100 mg Oral tab 0.5 tab once daily [Active]; amiodarone 200 mg Oral tab 1 tab once daily [Active]; aspirin 81 mg Oral TbEC 1 tab once daily [Active]; atorvastatin 20 mg Oral tab 1 tab once daily [Active]; gabapentin 300 mg Oral cap 1 cap 3 times per day [Active]; chondroitin glucosamide 1500mg/1200 mg 1 tab PO twice a day [Active]; hydrocodone-acetaminophen 10-325 mg Oral tab [Active]; Tresiba FlexTouch U-200 200 unit/mL (3 mL) subcutaneous inpn daily [Active]; levothyroxine 25 mcg tab 1 tab once daily [Active]; loratadine 10 mg Oral TbDL 1 tab once daily [Active]; Multiple Vitamins Oral tab daily [Active]; prednisone 5 mg Oral tab 1 tab 2 times per day [Active]; ranitidine HCl 300 mg Oral cap 1 cap once daily [Active]; Incruse Ellipta 62.5 mcg/actuation inhalation dsdv 1 puff once daily [Active]; - PMHx: 10:53 Asthma; Hypertension; Diabetes - IDDM; COPD; CHF; ESRD; jl7 - PSHx: 10:53 Colostomy; pacemaker/defib; perf'd colon; hip replacement; Hernia repair; jl7 - Immunization history:: Adult Immunizations up to date. - Social history:: Smoking status: Patient/guardian denies using tobacco. - Family history:: not pertinent. ROS: 11:59 Eyes: Negative for injury, pain, redness, and discharge, Neck: Negative for injury, jeffy pain, and swelling, Cardiovascular: Negative for chest pain, palpitations, and edema. 11:59 Respiratory: Negative for shortness of breath, cough, wheezing, and pleuritic chest pain, Abdomen/GI: Negative for abdominal pain, nausea, vomiting, diarrhea, and constipation, Back: Negative for injury and pain, : Negative for injury, bleeding, discharge, and swelling, MS/Extremity: Negative for injury and deformity, Skin: Negative for injury, rash, and discoloration, Psych: Negative for depression, anxiety, suicide ideation, homicidal ideation, and hallucinations, Allergy/Immunology: Negative for hives, rash, and allergies, Endocrine: Negative for neck swelling, polydipsia, polyuria, polyphagia, and marked weight changes, Hematologic/Lymphatic: Negative for swollen nodes, abnormal bleeding, and unusual bruising. 11:59 Constitutional: Positive for fever. 11:59 ENT: Positive for sore throat. 11:59 Neuro: Positive for weakness. Exam: 11:59 Constitutional: This is a well developed, well nourished patient who is awake, alert, jeffy and in no acute distress. Head/Face: Normocephalic, atraumatic. Eyes: Pupils equal round and reactive to light, extra-ocular motions intact. Lids and lashes normal. Conjunctiva and sclera are non-icteric and not injected. Cornea within normal limits. Periorbital areas with no swelling, redness, or edema. Neck: Trachea midline, no thyromegaly or masses palpated, and no cervical lymphadenopathy. Supple, full range of motion without nuchal rigidity, or vertebral point tenderness. No Meningismus. Chest/axilla: Normal chest wall appearance and motion. Nontender with no deformity. No lesions are appreciated. Cardiovascular: Regular rate and rhythm with a normal S1 and S2. No gallops, murmurs, or rubs. Normal PMI, no JVD. No pulse deficits. Respiratory: Lungs have equal breath sounds bilaterally, clear to auscultation and percussion. No rales, rhonchi or wheezes noted. No increased work of breathing, no retractions or nasal flaring. Abdomen/GI: Soft, non-tender, with normal bowel sounds. No distension or tympany. No guarding or rebound. No evidence of tenderness throughout. Back: No spinal tenderness. No costovertebral tenderness. Full range of motion. Skin: Warm, dry with normal turgor. Normal color with no rashes, no lesions, and no evidence of cellulitis. MS/ Extremity: Pulses equal, no cyanosis. Neurovascular intact. Full, normal range of motion. Neuro: Awake and alert, GCS 15, oriented to person, place, time, and situation. Cranial nerves II-XII grossly intact. Motor strength 5/5 in all extremities. Sensory grossly intact. Cerebellar exam normal. Normal gait. Psych: Awake, alert, with orientation to person, place and time. Behavior, mood, and affect are within normal limits. 11:59 ENT: Posterior pharynx: Tonsils: are normal in appearance, Uvula: normal, midline, swelling, is not appreciated, erythema, that is mild, that is moderate, exudate, is not appreciated, peritonsillar mass, is not appreciated. Vital Signs: 10:53 BP 109 / 65; Pulse 86; Resp 20; Pulse Ox 93% ; Weight 74.39 kg; Height 6 ft. 0 in. [facility] (182.88 cm); Pain 5/10; 10:58 Temp 99.3(O); 7 12:00 BP 112 / 70; Pulse 84; Resp 16; Pulse Ox 98% on 2 lpm NC; [facility] 13:00 BP 103 / 72; Pulse 87; Resp 16 S; Temp 98.5(O); Pulse Ox 99% on 2 lpm NC; 7 14:04 BP 106 / 56; Pulse 82; Resp 18; Pulse Ox 97% on 2 lpm NC; 7 10:53 Body Mass Index 22.24 (74.39 kg, 182.88 cm) [facility] MDM: 10:53 Patient medically screened. [facility] 11:59 Data reviewed: vital signs, nurses notes, lab test result(s), EKG, radiologic studies, jeffy plain films. 06/27 10:57 Order name: Basic Metabolic Panel [facility] 06/27 10:57 Order name: BNP [facility] 06/27 10:57 Order name: CBC with Diff [facility] 06/27 10:57 Order name: Ckmb; Complete Time: 12:21 [facility] 06/27 10:57 Order name: CPK; Complete Time: 12:21 [facility] 06/27 10:57 Order name: LFT's; Complete Time: 12:21 [facility] 06/27 10:57 Order name: Magnesium; Complete Time: 12:21 [facility] 06/27 10:57 Order name: PT-INR; Complete Time: 11:56 [facility] 06/27 10:57 Order name: Ptt, Activated; Complete Time: 11:56 [facility] 06/27 10:57 Order name: Troponin (emerg Dept Use Only); Complete Time: 11:56 [facility] 06/27 10:57 Order name: Lipase; Complete Time: 12:21 [facility] 06/27 10:57 Order name: Blood Culture Adult (2) [facility] 06/27 10:57 Order name: Urine Culture [facility] 06/27 10:57 Order name: Procalcitonin; Complete Time: 12:05 [facility] 06/27 10:57 Order name: XRAY Chest (1 view); Complete Time: 11:56 [facility] 06/27 10:57 Order name: Basic Metabolic Panel; Complete Time: 12:21 [facility] 06/27 10:57 Order name: BNP B-Type Natriuretic Peptide; Complete Time: 12:05 [facility] 06/27 10:57 Order name: CBC with Automated Diff; Complete Time: 12:21 [facility] 06/27 11:04 Order name: Strep; Complete Time: 11:56 [facility] 06/27 11:05 Order name: Lactate; Complete Time: 11:56 [facility] 06/27 11:42 Order name: Throat Culture [facility] 06/27 11:51 Order name: Urine Dipstick--Ancillary (enter results); Complete Time: 12:05 06/27 12:06 Order name: CBC Smear Scan; Complete Time: 12:21 [facility] 06/27 10:57 Order name: EKG; Complete Time: 10:58 [facility] 06/27 10:57 Order name: Cardiac monitoring; Complete Time: 11:14 [facility] 06/27 10:57 Order name: EKG - Nurse/Tech; Complete Time: 11:14 [facility] 06/27 10:57 Order name: IV Saline Lock; Complete Time: 11: [facility] 06/27 10:57 Order name: Labs collected and sent; Complete Time: 11:14 [facility] 06/27 10:57 Order name: O2 Per Protocol; Complete Time: 11:14 [facility] 06/27 10:57 Order name: O2 Sat Monitoring; Complete Time: 11: [facility] 06/27 10:57 Order name: Urine Dipstick-Ancillary (obtain specimen); Complete Time: 13:02 [facility] 06/27 11:57 Order name: PO challenge; Complete Time: 13: [facility] 06/27 12:14 Order name: CONS Physician Consult EDMS Administered Medications: 11:33 Drug: NS 0.9% 1000 ml Route: IV; Rate: 75 ml/hr; Site: right forearm; jl7 14:34 Follow up: IV Status: Infusion continued upon admission jl7 12:45 Drug: D50W 50 ml Route: IVP; Site: right forearm; ae1 14:29 Follow up: Response: No adverse reaction jl7 12:48 Drug: Insulin Regular Human 10 units {Co-Signature: ae1 (Charan Cisneros RN).} Route: jl7 IVP; Site: right forearm; 14:45 Follow up: Response: No adverse reaction jl7 12:48 Drug: Albuterol - atroVENT (3:1) (2.5 mg - 0.5 mg) 3 ml Route: Nebulizer; ae1 14:33 Follow up: Response: No adverse reaction jl7 12:55 Drug: Lasix 100 mg Route: IVP; Site: right forearm; ae1 14:33 Follow up: Response: No adverse reaction jl7 12:59 Drug: vancoMYCIN 1 grams Route: IVPB; Infused Over: 2 hrs; Site: right forearm; ae1 14:28 Follow up: IV Status: Infusion continued upon admission jl7 13:40 Drug: Cefepime 1 grams Route: IVPB; Rate: 200 ml/hr; Infused Over: 2 mins; Site: right jl7 forearm; 13:42 Follow up: IV Status: Completed infusion jl7 14:29 Follow up: Response: No adverse reaction jl7 13:42 Drug: Cefepime 1 grams Route: IVPB; Rate: 200 ml/hr; Infused Over: 2 mins; Site: right jl7 forearm; 13:45 Follow up: Response: No adverse reaction; IV Status: Completed infusion [facility] 14:29 Follow up: IV Status: Completed infusion [facility] 14:20 Drug: Kayexalate 45 grams Route: PO; 7 14:45 Follow up: Response: No adverse reaction [facility] 14:33 Not Given (Patient Refused): Tylenol 650 mg PO once [facility] Point of Care Testing: Blood Glucose: 11:21 Blood Glucose: 107 mg/dL; jb1 Ranges: Critical Glucose Levels:Adult <50 mg/dl or >400 mg/dl <40 mg/dl or >180 mg/dl Disposition: 06/27/17 12:09 Hospitalization ordered by Marino Medina for Inpatient Admission. Preliminary diagnosis are Weakness, Fever, unspecified, End stage renal disease, Elevated white blood cell count, Hyperkalemia. - Bed requested for Telemetry/MedSurg (Inpatient). - Status is Inpatient Admission. [facility] - Condition is Stable. - Problem is new. - Symptoms have improved. UTI on Admission? No Signatures: Dispatcher [employer] EDMS Kenny Dietrich MD MD cha Elliott, Andrea, RN RN ae1 Mane Riley RN RN jl7 Lucy Victoria RN RN df Andrea Elliott RN ae1
[2017-06-27 12:10] LABS: Anisocytosis 3+; Blood Morphology Comment NOTED (NOT SEEN); Hypochromasia 2+; Platelet Estimate ADEQ; Polychromasia 1+; Urine White Blood Cell Casts OK
[2017-06-27 12:17] LABS: Albumin 2.7 g/dL (3.2-5.5); Bilirubin Direct 0.9 mg/dL (0-0.2); Bilirubin Total 1.6 mg/dL (0.3-1.2); Magnesium 2.7 mg/dL (1.8-2.5)
[2017-06-27] MEDS ORDERED: CEFEPIME 0 GM/0 ML BAG IV ONE (12:28)
[2017-06-27] MEDS ORDERED: VANCOMYCIN/NS 1 gm 1 GM/250 ML BAG ONE (12:28)
[2017-06-27] MEDS ORDERED: CEFEPIME/SWI 2gm 2 GM/20 ML SYR IV ONE (12:45)
[2017-06-27] MEDS ORDERED: ALBUTEROL 2.5 MG/3 ML NEB SOL ONE (12:54)
[2017-06-27] MEDS ORDERED: INSULIN -REGULAR HUMAN 50 UNIT/0.5 ML ML ONE (12:54)
[2017-06-27] MEDS ORDERED: IPRATROPIUM BROM 0.5MG/2.5ML ONE (12:54)
[2017-06-27] MEDS ORDERED: FUROSEMIDE 100 MG/10 ML VIAL IV ONE (12:55)
[2017-06-27] MEDS ORDERED: SOD POLYSTYREN SUL 15 GM/60 ML UCUP ONE ×2 (12:56→14:42)
[2017-06-27] MEDS ORDERED: D50W 25 GM/50 ML SYRINGE IV ONE (12:56)
[2017-06-27] MEDS ORDERED: MANNITOL 25% 12.5 GM/50 ML VIAL IV PRN (13:39)
[2017-06-27] MEDS ORDERED: NA CHLORIDE 0.9% 1,000 ML IV PRN (13:39)
[2017-06-27] MEDS ORDERED: ALBUMIN HUMAN 25% 50 ML IV SCH (14:00)
[2017-06-27] MEDS ORDERED: ACETAMINOPHEN 500 MG TAB PO PRN (14:55)
[2017-06-27] MEDS ORDERED: VANCOMYCIN 1 GM in NA CHLORIDE 0.9% 500 ML IVPB SCH (14:55)
[2017-06-27] MEDS ORDERED: ONDANSETRON 4 MG/2 ML VIAL IV PRN (14:55)
[2017-06-27] MEDS ORDERED: VANCOMYCIN 500 MG in NA CHLORIDE 0.9% 100 ML IVPB SCH (15:15)
--- NOTE | 2017-06-27 16:20 | EKG ---
Test Date: 2017-06-27 Test Time: 11:00:20 Core Sticker: GRACIELA MEASUREMENT RESULTS: Intervals: Rate: 85 NH: 230 QRSD: 140 QT: 374 QTc: 445 [place]: P: 62 NH: 230 QRS: -13 T: 41 INTERPRETIVE STATEMENTS: Sinus rhythm with 1st degree AV block Indeterminate axis Nonspecific intraventricular block T wave abnormality, consider lateral ischemia Abnormal ECG Compared to ECG 06/18/2017 10:58:34 Indeterminate axis now present T-wave abnormality now present Possible ischemia now present Electronically Signed On 06-27-17 16:19:44 CDT by Dax Gross
[2017-06-27] MEDS: HYDROCODONE/APAP 10/325 TAB PO SCH (20:33)
[2017-06-27] MEDS: ATORVASTATIN 20 MG TAB PO SCH (20:33)
[2017-06-27] MEDS: ALLOPURINOL 100 MG TAB PO SCH (20:33)
[2017-06-27] MEDS: predniSONE 5 MG TAB PO SCH (20:33)
[2017-06-27] MEDS: GABAPENTIN 300 MG CAP PO SCH (20:33)
[2017-06-27] MEDS: ALBUTEROL 2.5 MG/3 ML NEB SOL NEB SCH (21:54)
[2017-06-27 23:01] LABS: Potassium 4.4 mEq/L (3.6-5.0)
--- NOTE | 2017-06-28 02:03 | CON ---
Date of Consultation: 06/27/2017 Chief Complaint: End-stage renal disease, congestive heart failure with systolic dysfunction, respiratory failure, hypoxemia. History Of Present Illness: The patient has end-stage renal disease. He has been dialyzed 3 times per week. The patient is admitted to the hospital today because he was complaining of severe shortness of breath and he had atypical chest pain. He was experiencing pain with deep inspiration in the chest wall area. The patient recently was treated with antibiotics and was discharged from [facility] 2 days ago, although he came to the emergency room today and he missed dialysis scheduled in outpatient [facility]. The patient was found to have severe hyperkalemia, fluid overload and is admitted to the hospital because of severe CHF exacerbation with fluid overload, respiratory failure, and chest pain. He has leukocytosis secondary to polycythemia vera, history of recent sepsis, chronic obstructive pulmonary disease. He was complaining of very dark bloody looking urine. He denies kidney stones, denies renal colic. Although, he had some low-grade fever. The patient has history of diabetes mellitus and history of multiple admission for CHF exacerbation and sepsis. Review of Systems: General: The patient complains of generalized weakness, difficulty with respirations, low grade fever. Eyes: The patient denies vision changes. Ears, Nose, Mouth, and Throat: Denies sore throat or earache. Cardiovascular: chest pain , chest wall apin with deep inspiration. Respiratory: Has PND, orthopnea, and severe dyspnea with slight activities. GI: Denies abdominal pain. Denies nausea, melena, hematemesis. Musculoskeletal: Complaining of generalized weakness. Denies unilateral weakness in extremities. : Has recent history of dark urine and hematuria. Past Medical History: Diabetes mellitus, end-stage renal disease, congestive heart failure, cardiomyopathy, COPD, anemia, CKD, renal osteodystrophy, asthma, hypertension, colostomy, pacemaker defibrillator, history of perforated colon, hip replacement, dialysis access insertion, and hernia repair. Family History: No kidney disease in the family. Social History: Denies tobacco, alcohol, or illicit drugs. Physical Examination: General: The patient is in moderate respiratory distress. Eyes: Anicteric sclerae. EOMI. Ears, Nose, Mouth, and Throat: Oral mucosa moist. No pallor. Neck: Supple. There is JVD present. Lungs: Crackles bilaterally present. Few rhonchi. Heart: S1, S2. No pericardial friction rub. Abdomen: Soft, benign, nontender. Extremities: Edema present in both legs. Skin: warm and dry no skin rashes Neurologic: no tremor, CN intact Lab Work: Hemoglobin is 12.0, platelet count 388,000, WBC 26,600. Chemistry showed sodium 128, potassium 6.0, chloride 92, CO2 25, BUN 52, creatinine 6.89, calcium 9.2, total bilirubin 1.6, AST 162, ALT 105, magnesium 2.7, BNP 7198, troponin 0.04. Blood culture pending. Urine culture obtained and pending. Impression And Plan: 1. Severe fluid overload, congestive heart failure with systolic dysfunction. The patient very much symptomatic with shortness of breath and has hypoxemic respiratory failure due to pulmonary edema . The patient has congestive heart failure exacerbation. Monitor blood pressure and advanced medication with beta tita, CORBY inhibitor. The patient will have stat dialysis with ultrafiltration to treat fluid overload and provide metabolic clearance. He may require daily dialysis to control volemia and provide management for congestive heart failure. 2. Cardiomyopathy. Cardiology workup will be done. The patient had elevated troponin. Continue to monitor troponin to rule out acute coronary syndrome. 3. Anemia, hemoglobin satisfactory. The patient does not need JEANNIE. The patient has history of polycythemia vera. I recommend Hematology consultation. The patient have elevated WBC and workup is pending to rule out sepsis. Continue broad-spectrum antibiotics. 4. Renal osteodystrophy. Continue renal diet and binders. Adjust medications according to lab results. 5. Diabetes mellitus. Continue insulin per sliding scale. 6. Hyponatremia, dilutional secondary to hypervolemia. Sodium 128 corresponding with fluid overload. The patient will continue low-sodium diet and p.o. fluid restriction. Dialysis with ultrafiltration will be done to treat fluid overload and to control electrolyte abnormalities. 7. Hyperkalemia, severe. The patient was treated with Kayexalate. The patient will have emergent hemodialysis to treat hyperkalemia . Plan is to re- evaluate electrolytes after dialysis. The patient will require STAT dialysis for metabolic clearance to control azotemia as well as to treat hyperkalemia. NOEMI/ABRIL Voice ID: [id number] Report ID: [id number] [facility]ITALSagr[facility]
--- NOTE | 2017-06-28 02:09 | HP ---
Date of Admission: 06/27/2017 Code Status: Full. Chief Complaint: Generalized weakness. History Of Present Illness: The patient is a 71-year-old male who was recently discharged from the hospital on 06/24/2017, admitted for sepsis and acute on chronic CHF. The patient states that since being discharged home from the hospital, he has gotten progressively weaker to the point where he was unable to stand today. He also reports some sore throat and headache. The patient's symptoms are constant, moderate, progressively worsening. The patient does report some subjective fever. No chills. The patient also reports decubitus ulcer. states that she brought protein shakes for him, which had added potassium and the patient has not been to dialysis since Tuesday. The patient came in for further evaluation of his symptoms. Upon arrival, his labs showed sodium of 128, potassium is 6, creatinine was 6.89, magnesium 2.7, AST 162, ALT 105, and alkaline phosphatase 12. Troponin 0.04. BNP 7198. Procalcitonin 1.31 , which is trending down from 06/18/2017. UA was negative. White count was 26, 000. The patient does have history of polycythemia vera and does have elevated white count; however, this is above his baseline. The patient was started on IV antibiotics and IV fluids and referred for admission. He was also given Kayexalate, insulin, albuterol, for his elevated potassium. When seen in the ER , the patient was awake, alert, oriented x3, in some moderate distress. Past Medical History: Diabetes, hypertension, CHF, COPD, polycythemia vera, diverticulitis, hyperlipidemia, heart failure, severe pulmonary hypertension, pacemaker defibrillator, gout, and end-stage renal disease, on hemodialysis. Surgical History: Colostomy in February 2016, cyst removed on the back in 2013 , neck surgery in 1984, right shoulder repair 20 years ago, and hernia repair in 2014. Family History: Father has hypertension and mother has heart disease, hypertension, diabetes, and stroke. Social History: No alcohol or illicit drug use or tobacco use. Medications: Reviewed. Allergies: SHELLFISH CAUSES ANAPHYLAXIS. CIPROFLOXACIN, SHORTNESS OF BREATH. METFORMIN, UNKNOWN REACTION. Review of Systems: Eleven-point system reviewed and negative except as above. Physical Examination: Vital Signs: Temperature 99.3, heart rate 86, blood pressure 109/65, respirations 20, and O2 93% on 2 L via nasal cannula. General: Awake, alert, oriented x3, moderate distress, elderly male, ill- appearing. HEENT: Normocephalic, atraumatic. PERRLA. EOMI. Dry mucous membranes. Oropharynx is clear. Poor dentition. Conjunctiva anicteric. Neck: Supple. No JVD. Trachea midline. CV: S1, S2. Peripheral pulses present. Respiratory: Moving air well bilaterally. No wheezing. No stridor. No use of accessory muscles. Gastrointestinal: Abdomen is soft, nontender, nondistended. Positive bowel sounds. Colostomy in place. Extremities: No clubbing or cyanosis. The patient has 3+ edema of bilateral lower extremities. Neurologic: Nonfocal. Cranial nerves 2 through 12 intact grossly. No focal neurological deficit. Speech is normal. Laboratory Data: WBC 26.6, H and H 12 and 40.9, platelets 388, neutrophils 76% . INR 1.20. Sodium 120, potassium 6, chloride 92, CO2 25, BUN 52, creatinine 6.89, glucose 113, calcium 9.2, lactate 13.6, magnesium 2.7, AST 162, ALT 105, total bilirubin 1.6, alkaline phosphatase 512. Troponin 0.04. BNP 7198. Albumin 2.7 and lipase 43. Procalcitonin 0.31. UA negative, 2+ protein. Diagnostic Data: Chest x-ray shows no acute cardiopulmonary process, no significant change from prior. Assessment And Plan: A 71-year-old male with: 1. Generalized weakness. 2. Rule out sepsis. White count is 26,000, above baseline. Procalcitonin still elevated. We will start on broad spectrum IV antibiotics and obtain cultures. 3. Acute on chronic systolic and diastolic heart failure. Continue diuresis and congestive heart failure guidelines. Echo in 03/2017 shows ejection fraction of 33%. 4. Status post pacemaker and AICD. 5. End-stage renal disease, on hemodialysis. Consult Nephrology. 6. Severe chronic obstructive pulmonary disease, on supplemental oxygen as needed. 7. Atrial fibrillation, chronic, on amiodarone, on aspirin for anticoagulation. 8. Diabetes mellitus type 2 with long-term use of insulin without complications. 9. Essential hypertension. 10. Hyperkalemia. 11. Hyponatremia. 12. Hypothyroidism. Plan: Admit the patient to Med-Surg place as inpatient. Patient has living will and MPOA /ABRIL Voice ID: [id number] MTDD
[2017-06-28] MEDS: ALBUTEROL 2.5 MG/3 ML NEB SOL NEB SCH ×4 (02:54→19:43)
[2017-06-28 05:17] LABS: Absolute Monocytes 2.8 K/uL (0.1-1.3); Absolute Neutrophil 17.3 K/uL (1.8-8.0); Basophils % 1.8 % (0-1.3); Eosinophils % 1.8 % (0-4.4); Hematocrit 37.3 % (39.6-49.0); Lymphocytes % 8.8 % (15.3-44.8); MCH 19.6 pg (27.0-35.0); MCV 67.4 fL (80-100); MPV 8.5 fL (7.6-11.3); Monocytes % 12.1 % (3.3-12.3); RBC Red Blood Cell Count 5.54 M/uL (4.33-5.43)
[2017-06-28] MEDS: LEVOTHYROXINE SOD 0.025 MG TAB PO SCH (05:38)
[2017-06-28 06:01] LABS: Albumin 2.2 g/dL (3.2-5.5); Bilirubin Total 1.8 mg/dL (0.3-1.2); Protein, Total 5.9 g/dL (6.0-8.3)
[2017-06-28] MEDS ORDERED: CEFEPIME 1 GM/VIAL IV SCH (09:00)
[2017-06-28] MEDS: FUROSEMIDE 40 MG/4 ML VIAL IV SCH ×2 (09:00→17:00)
[2017-06-28] MEDS: HYDROCODONE/APAP 10/325 TAB PO SCH ×2 (09:00→22:09)
[2017-06-28] MEDS: HOME MED 1 EA UNK (Umeclidinium Bromide [Incruse Ellipta] 1 PUFF) PO SCH (09:00)
[2017-06-28] MEDS: LORATADINE 10 MG TAB PO SCH (09:33)
[2017-06-28] MEDS: ASPIRIN EC 81 MG TAB PO SCH (09:33)
[2017-06-28] MEDS: AMIODARONE HCL 200 MG TAB PO SCH (09:33)
[2017-06-28] MEDS: predniSONE 5 MG TAB PO SCH ×2 (09:33→22:09)
[2017-06-28] MEDS: RANITIDINE 150 MG TABLET PO SCH (09:33)
[2017-06-28] MEDS: GABAPENTIN 300 MG CAP PO SCH ×3 (09:34→22:10)
[2017-06-28] MEDS: CEFEPIME 0.5 GM in NA CHLORIDE 0.9% 50 ML IV SCH (09:34)
--- NOTE | 2017-06-28 16:17 | PN ---
Date of Progress Note: 06/28/2017 The patient seen and examined. Chart reviewed and case discussed with RN. Subjective: The patient states he feels better. States he was unable to sleep last night. No pain. Review of Systems: Negative except as above. Medications: Reviewed. Physical Examination: Vital Signs: Temperature 98.8, heart rate 92, blood pressure 107/53, respirations 18, O2 90% on room air. General: Awake, alert, and oriented x3. Mild distress. Elderly male, somewhat ill-appearing. CV: S1, S2 audible. Peripheral pulses present. Respiratory: Moving air well bilaterally. No wheezing. Abdomen: Soft, nontender, nondistended. Positive bowel sounds. Extremities: No clubbing, cyanosis. The patient does have 3+ pitting edema. Neurologic: Nonfocal. Integumentary: The patient has stage 1 decubitus ulcer and multiple abrasions on both of bilateral l ower extremities. Laboratory Data: Sodium 131, potassium 5, chloride 94, CO2 27, BUN 39, creatinine 5.7, glucose 83, c alcium 8.5, AST 157, ALT 101, alkaline phosphatase 452, albumin 2.2, procalcitonin 1.3. WBC 23, H an d H 10.8 and 37.3, platelets 336, neutrophils 75.5%. Blood panel pending. Urine culture shows 2+ gr am-negative rods. Throat culture shows normal upper respiratory lo. Group A strep rapid screen n egative. Blood cultures pending. Assessment And Plan: A 71-year-old male with; 1.Generalized weakness. 2.Possible sepsis. White count improving. Procalcitonin elevated. We will continue with broad-spe ctrum IV antibiotics. Source of infection may be integumentary or possible urinary tract infection. 3.Urinary tract infection. Acute cystitis without hematuria. Urine culture growing gram-negative r ods. We will follow up on ID and sensitivity. 4.Acute on chronic systolic and diastolic combined heart failure. We will continue diuresis and con gestive heart failure guidelines. EF of 33% from March 2017. 5.Status post pacemaker automatic implantable cardioverter defibrillator. 6.End-stage renal disease, on hemodialysis. Appreciate Nephrology input. The patient was dialyzed yesterday. 7.Hyperkalemia, corrected. 8.Hyponatremia. We will continue to monitor. 9.Hypothyroidism. Continue Synthroid. 10.Atrial fibrillation chronic on amiodarone. The patient is on aspirin for anticoagulation. 11.Diabetes mellitus type 2 with long-term use of insulin without complications. 12.Essential hypertension. 13.Gastrointestinal and deep venous thrombosis prophylaxis with PPI and Lovenox. /ABRIL Voice ID: [id number] Report ID: [id number]
--- NOTE | 2017-06-28 18:00 | PN ---
Date of Progress Note: 06/28/2017 Subjective: The patient was readmitted because of weakness and tiredness. Physical Examination: Vital Signs: Blood pressure 102/59, pulse of 85, afebrile. Chest: Clear to auscultation. Heart: S1, S2. Regular. Abdomen: Colostomy. Extremities: +1 edema. Laboratory Data: WBC 23, H and H 10.8/37.3, platelets 336. Sodium 131, potassium 5, bicarb 27, BUN 39, creatinine 5.7, calcium 8.5. Alkaline phosphatase 452, procalcitonin 1.3. Medications: Current medications the patient on its include; 1.Aspirin. 2.Cefepime. 3.Vancomycin. 4.Loratadine. 5.Lovenox. 6.Tylenol. 7.Lasix 80 t.i.d. 8.Ranitidine. 9.Allopurinol. Diagnostic Data: Chest x-ray, no congestion. Assessment And Plan: 1.End-stage renal disease. Looked to me normal volume. Had some peripheral edema. I am going to d o dialysis today. Plan to skip tomorrow unless if his potassium is elevated. 2.Hypertension, controlled, optimal. We will continue to monitor the patient. We will utilize bloo d pressure for more diuresis. 3.Hyperkalemia, persists, possible secondary to the leukocytosis. I am going to dialyze the patient on low K bath and we will monitor. We will go ahead and get TSH and fecal occult just to rule out a ny other causes for hyperkalemia. We will monitor. 4.Leukocytosis secondary to cellulitis. Continue current antibiotic. We will follow up with the pr imary to skip vanco today given the vanco trough of 27. 5.Congestive heart failure. Looked to me normal volume currently. We will continue dialysis. 6.Polycythemia vera. Continue to monitor. 7.Chronic obstructive pulmonary disease. Start the patient on breathing treatment. We will follow up. Resume his prednisone. MICHELLE/ABRIL Voice ID: [id number] Report ID: [id number]
[2017-06-28] MEDS: ATORVASTATIN 20 MG TAB PO SCH (22:10)
[2017-06-28] MEDS: ALLOPURINOL 100 MG TAB PO SCH (22:10)
[2017-06-28] MEDS ORDERED: MELATONIN 5 MG TABLET PO PRN (22:40)
[2017-06-29] MEDS: FUROSEMIDE 40 MG/4 ML VIAL IV SCH ×3 (00:05→17:01)
[2017-06-29] MEDS ORDERED: MELATONIN 3 MG TABLET PO PRN (00:31)
[2017-06-29] MEDS: ALBUTEROL 2.5 MG/3 ML NEB SOL NEB SCH ×4 (02:00→20:09)
[2017-06-29 05:53] LABS: Absolute Lymphocytes (CBC) 1.3 K/uL (0.7-4.9); Absolute Neutrophil 26.8 K/uL (1.8-8.0); Basophils % 1.1 % (0-1.3); Eosinophils % 1.2 % (0-4.4); Hematocrit 40.9 % (39.6-49.0); Lymphocytes % 3.8 % (15.3-44.8); MCH 19.8 pg (27.0-35.0); MCV 67.9 fL (80-100); MPV 8.5 fL (7.6-11.3); Monocytes % 14.8 % (3.3-12.3); RBC Red Blood Cell Count 6.02 M/uL (4.33-5.43)
[2017-06-29] MEDS: LEVOTHYROXINE SOD 0.025 MG TAB PO SCH (06:26)
[2017-06-29 06:27] LABS: Albumin 2.2 g/dL (3.2-5.5); Bilirubin Total 2.6 mg/dL (0.3-1.2); Phosphorus 3.5 mg/dL (2.5-4.3); Potassium 4.6 mEq/L (3.6-5.0); Protein, Total 6.1 g/dL (6.0-8.3)
[2017-06-29 06:40] LABS: Thyroid Stimulating Hormone 7.29 uIU/mL (0.34-5.60)
--- NOTE | 2017-06-29 07:44 | P.PN ---
Date of Service: 06/29/17 Patient apparently had some confusion this morning. This resolved. Labs came back this morning and white blood cell count more elevated. Patient has Pseudomonas in the urine. White blood cell count has been persistently elevated since June of 2016. May need per full blood smear to review. Currently on cefepime for Pseudomonas and vancomycin as well. Consider panculture along with the peripheral blood smear review.
[2017-06-29] MEDS: HOME MED 1 EA UNK (Umeclidinium Bromide [Incruse Ellipta] 1 PUFF) PO SCH (09:00)
[2017-06-29] MEDS: HYDROCODONE/APAP 10/325 TAB PO SCH ×2 (09:00→21:00)
[2017-06-29] MEDS: CEFEPIME 0.5 GM in NA CHLORIDE 0.9% 50 ML IV SCH (09:32)
[2017-06-29] MEDS: AMIODARONE HCL 200 MG TAB PO SCH (09:32)
[2017-06-29] MEDS: LORATADINE 10 MG TAB PO SCH (09:32)
[2017-06-29] MEDS: ENOXAPARIN 30 MG/0.3 ML SQ SCH (09:32)
[2017-06-29] MEDS: ASPIRIN EC 81 MG TAB PO SCH (09:32)
[2017-06-29] MEDS: GABAPENTIN 300 MG CAP PO SCH (09:33)
[2017-06-29] MEDS: RANITIDINE 150 MG TABLET PO SCH (09:35)
[2017-06-29] MEDS: predniSONE 5 MG TAB PO SCH (09:35)
--- NOTE | 2017-06-29 11:10 | RAD REPORT ---
EXAM DESCRIPTION: CT - Head Brain Wo Cont - 06/29/2017 10:59 am CLINICAL HISTORY: Altered consciousness. COMPARISON: 06/18/2017 TECHNIQUE: All CT scans are performed using dose optimization technique as appropriate and may inclu de automated exposure control or mA/KV adjustment according to patient size. FINDINGS: No intracranial hemorrhage, hydrocephalus or extra-axial fluid collection.No areas of brai n edema or evidence of midline shift. The paranasal sinuses and mastoids are clear. The calvarium is intact. IMPRESSION: No acute intracranial abnormality.
--- NOTE | 2017-06-29 15:46 | PN ---
Date of Progress Note: 06/29/2017 Subjective: The patient is confused today. No nausea, no vomiting. Physical Examination: Vital Signs: Blood pressure 103/58, pulse of 95. Chest: Clear to auscultation. Heart: S1, S2. Regular. Abdomen: Soft. Nontender. Extremities: No edema. Colostomy bag clear. Laboratory Data: WBC 33.9, H and H 11.9/40.9, platelets 299. Sodium 132, potassium 4.6, bicarb 24, BUN 29, creatinine of 5. GFR of 11. Calcium 8.4. Phosphorus 3.5. Medications: Current medications the patient is on include: 1.Aspirin. 2.Vancomycin. 3.Cefepime. 4.Lovenox. 5.Amiodarone. 6.Atorvastatin. 7.Gabapentin. 8.Lasix 80 t.i.d. 9.Zofran. 10.Ranitidine. 11.Levothyroxine. Assessment And Plan: 1.End stage renal disease. Looks to me, normal volume. We will continue the patient on dialysis schedule, going to be dialyzed tomorrow, then Tuesday then switch back to his schedule Tuesday, Tue, Tuesday. 2.Hypertension. We will keep utilizing the blood pressure for more ultrafiltration. 3.Anemia. Polycythemia vera. No need for JEANNIE. 4.Urinary tract infection secondary to Pseudomonas. The patient was started on cefepime. Sensitive . Continue current treatment dose appropriate. 5.Gout is stable. 6.Altered mental status. The patient is going to get CT, possible delirium secondary to urinary tra ct infection. I am going to go ahead and decrease his gabapentin to 200 b.i.d., and we will follow u p. Case discussed with the by bedside. Discussed with Dr. Medina. MICHELLE/ABRIL Voice ID: [id number] Report ID: [id number]
--- NOTE | 2017-06-29 17:55 | PN ---
Date of Progress Note: 06/29/2017 Subjective: The patient is seen and examined, chart reviewed, and case discussed with RN and Dr. Giles. The patient much more confused this morning. States that he hallucinated and thought 2 men working on his ANNA and giving him pills. Also saw a mob on the floor while the nurses were there. at the bedside. Treatment plan explained. All questions answered. The patient does report some tremors. Review of Systems: Negative except as above. Medications: Reviewed. Physical Examination: Vital Signs: Temperature 99.5, heart rate 95, blood pressure 103/58, respirations 18, O2 saturation 94% on room air. General: Awake, alert, oriented x3, in some mild distress, ill-appearing, older than stated age male. CV: S1, S2. Peripheral pulses present. Respiratory: Moving air well bilaterally. Some expiratory wheezes. No stridor. No use of accessory muscles. Gastrointestinal: Abdomen is soft, nontender, and nondistended. Positive bowel sounds. Colostomy in place. Extremities: No clubbing, cyanosis. 1+ edema significantly improved. Neurologic: Nonfocal. Psych: The patient does have positive visual hallucinations. Mood is somewhat euphoric. Affect congruent with mood. Insight and judgment are fair. Laboratory Data: Sodium 132, potassium 4.6, chloride 95, CO2 24, BUN 29, creatinine 5.03, glucose 64, calcium 8.4. Total bilirubin 2.6, AST 183, ALT 108 , alkaline phosphatase 526, albumin 2.2, TSH 7.29. WBC 33.9, H and H 11.9 and 48.9, platelets 299, neutrophils 79%. Urine culture showing Pseudomonas aeruginosa, sensitive to cefepime. Blood cultures, no growth to date. Stool occult for blood negative. CT scan of the head shows no acute intracranial abnormality. Assessment And Plan: A 71-year-old male with; 1. Acute metabolic encephalopathy with acute delirium, unclear etiology. Head CT scan is negative. May be secondary to urinary tract infection. We will continue to monitor. 2. Sepsis. WBC worsened today. Procalcitonin continues to be elevated. Continue broad-spectrum IV antibiotics. Secondary to urinary tract infection with Pseudomonas. We will consult Infectious Disease. 3. Urinary tract infection and acute cystitis without hematuria, secondary to Pseudomonas, sensitivities noted. We will continue IV antibiotics. 4. Acute on chronic systolic and diastolic heart failure. Continue IV Lasix and diuresis and resume home medications. EF is 33% from 2017. 5. Status post pacemaker AICD. 6. End-stage renal disease, on hemodialysis. Appreciate Dr. Giles's input. Continue with dialysis. 7. Hyperkalemia, corrected. 8. Hyponatremia, stable. We will continue to monitor. 9. Hypothyroidism. TSH is elevated. We will adjust Synthroid dose. 10. Diabetes mellitus type 2 with long-term use of insulin without complications. 11. Atrial fibrillation, chronic. Continue amiodarone. The patient is on aspirin. 12. Essential hypertension, stable. 13. Gastrointestinal and deep venous thrombosis prophylaxis with PPI and Lovenox renally dosed. 14. Elevated liver enzymes SA/MODL Voice ID: [id number] Report ID: [id number] MTDD
[2017-06-29 20:29] LABS: HBsAG Nonreactive (Nonreactive)
--- NOTE | 2017-06-29 20:55 | CON ---
History Of Present Illness: The patient is a 71-year-old male. I was consulted for sepsis and leuko cytosis. The patient has significant history of congestive heart failure and end-stage renal disease . He was recently discharged from hospital, came back because of progressive weakness. Past Medical History: Diabetes mellitus, hypertension, CHF, COPD, polycythemia vera, diverticulitis, hyperlipidemia, heart failure, severe pulmonary hypertension, pacemaker, gout, end-stage renal disea se. Surgical History: Colostomy, cyst removed from the back, neck surgery, right shoulder repair, hernia repair. Family History: Hypertension, heart disease. Social History: No alcohol or tobacco. Medication: Include cefepime and vancomycin. See MARs for other medication. Allergies: CIPRO, SHELLFISH, METFORMIN. Review of Systems: A 10-point review was performed. Physical Examination: General: This is a 71-year-old male, lying in bed, not in any acute cardiopulmonary distress. Vital Signs: Temperature 98, pulse 93, respiration 18, blood pressure 118/57. HEENT: Unremarkable. Neck: Supple. Lungs: Basal crackles. Heart: S1, S2. Regular. Abdomen: Soft, nontender. Bowel sounds positive. Extremities: Trace edema, multiple bruising. Skin: Lesions noted. Laboratory Data: Shows WBC 45169, hemoglobin 11.9, platelets are 299. Chemistry shows sodium 132, p otassium 4.6, chloride 95, bicarb 24. BUN 29, creatinine 5, glucose is 64. Assessment And Plan: Sepsis, polycythemia vera, renal failure, elevated liver enzymes, and alkaline phosphatase. Prognosis guarded. Continue antibiotic and supportive care. We will follow the patien t as needed. NF/MODL Voice ID: [id number] Report ID: [id number]
[2017-06-29] MEDS: ATORVASTATIN 20 MG TAB PO SCH (21:55)
[2017-06-29] MEDS: ALLOPURINOL 100 MG TAB PO SCH (21:55)
[2017-06-29] MEDS: GABAPENTIN 100 MG CAP PO SCH (21:55)
[2017-06-30] MEDS: FUROSEMIDE 40 MG/4 ML VIAL IV SCH ×3 (00:30→16:24)
[2017-06-30] MEDS: ALBUTEROL 2.5 MG/3 ML NEB SOL NEB SCH ×4 (01:18→19:51)
[2017-06-30 03:20] LABS: Absolute Lymphocytes (CBC) 1.5 K/uL (0.7-4.9); Absolute Neutrophil 24.8 K/uL (1.8-8.0); Basophils % 0.7 % (0-1.3); Eosinophils % 1.4 % (0-4.4); Hematocrit 36.7 % (39.6-49.0); Lymphocytes % 4.7 % (15.3-44.8); MCH 20.3 pg (27.0-35.0); MCV 66.7 fL (80-100); MPV 8.4 fL (7.6-11.3); Monocytes % 18.3 % (3.3-12.3)
[2017-06-30 03:40] LABS: Toxic Granulation 1+
[2017-06-30 03:41] LABS: Anisocytosis 2+; Basophilic Stippling 1+; Blood Morphology Comment NOTED (NOT SEEN); Hypochromasia 1+; Platelet Estimate ADEQ; Platelets, Giant FEW; Polychromasia SLIGHT
[2017-06-30 03:43] LABS: Albumin 2.3 g/dL (3.2-5.5); Bilirubin Total 3.1 mg/dL (0.3-1.2); Phosphorus 3.9 mg/dL (2.5-4.3); Potassium 4.5 mEq/L (3.6-5.0); Protein, Total 6.3 g/dL (6.0-8.3)
--- NOTE | 2017-06-30 07:43 | P.PN ---
Date of Service: 06/30/17 Patient was very lethargic this evening. Called by patient's nurse that she was concerned regarding his mental status. Reviewed chart extensively and he evaluated the patient. Left a message for patient's to call me as well. Patient is normally awake alert oriented to person place and time. His strength has declined over the last few years to where he is weak but he is still neurologically intact. He normally is able to interact appropriately. However, when I went to see him he was not interacting appropriately. He was very lethargic. He was having dystonia of his upper extremities as well as his face. Reviewing his records he had elevated LFTs as well as hyperbilirubinemia. This is most likely secondary to elevated ammonia level. Will get this checked. Patient is also on Lipitor and amiodarone and I will go ahead and hold these pending recommendations from Cardiology. 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 It could also be secondary to the medicines listed above so they are on hold for now. GI consultation is obtained as well. Patient has been on prednisone for a long time and this was discontinued today. I will check his cortisol level and this may need to be monitored so patient does not develop adrenal insufficiency. Will notify hospitalist in morning regarding patient's change of status overnight. Awaiting phone call from patient's regarding patient's clinical condition.
[2017-06-30] MEDS: HOME MED 1 EA UNK (Umeclidinium Bromide [Incruse Ellipta] 1 PUFF) PO SCH (09:00)
[2017-06-30] MEDS: HYDROCODONE/APAP 10/325 TAB PO SCH (09:00)
[2017-06-30] MEDS: LACTULOSE 20 GM/30 ML UCUP PO SCH ×3 (09:00→22:36)
[2017-06-30] MEDS ORDERED: VANCOMYCIN/NS 1 gm 1 GM/250 ML BAG IVPB SCH (10:45)
[2017-06-30] MEDS: ENOXAPARIN 30 MG/0.3 ML SQ SCH (12:44)
[2017-06-30] MEDS: RANITIDINE 150 MG TABLET PO SCH (12:44)
[2017-06-30] MEDS: GABAPENTIN 100 MG CAP PO SCH ×2 (12:44→22:36)
[2017-06-30] MEDS: LEVOTHYROXINE SOD 0.025 MG TAB PO SCH (12:44)
[2017-06-30] MEDS: LORATADINE 10 MG TAB PO SCH (12:44)
[2017-06-30] MEDS: ASPIRIN EC 81 MG TAB PO SCH (12:44)
[2017-06-30] MEDS: CEFEPIME 0.5 GM in NA CHLORIDE 0.9% 50 ML IV SCH (12:51)
--- NOTE | 2017-06-30 17:13 | PN ---
Date of Progress Note: 06/30/2017 The patient seen and examined. Chart reviewed and case discussed with RN. History: The patient very much more confused this morning, having some dystonic reactions. The stephanie ent is going for hemodialysis again today. Review of Systems: Limited due to patient's medical condition. Medications: Reviewed. Physical Examination: Vital Signs: Temperature 98.8, heart rate 101, blood pressure 115/61, respirations 16, O2 95% on 2 L via nasal cannula. General: Awake, alert, oriented to self, in some acute distress, confused, elderly male, ill-appeari ng. CV: S1, S2. Sinus tachycardia. Peripheral pulses present bilaterally. Respiratory: Moving air well bilaterally. No wheezing. Abdomen: Soft, nontender, nondistended. Positive bowel sounds. Extremities: No clubbing, cyanosis, 2+ edema bilateral lower extremities. Skin: Multiple lesions on bilateral lower extremities. Laboratory Data: Sodium 129, potassium 4.5, chloride 92, CO2 26, BUN 39, creatinine 5.93, glucose 11 0, calcium 8.4, bilirubin 3.1, AST 174, ALT 98, alkaline phosphatase 459, ammonia 57. Procalcitonin 9.15. WBC count 33.1, H and H 11.2 and 36.7, platelets 271, neutrophils 74%. Hepatitis panel nonrea ctive. Urine culture shows Pseudomonas aeruginosa. Blood cultures no growth to date wound. Assessment And Plan: A 71-year-old male with: 1.Acute metabolic encephalopathy, may be secondary to hepatic encephalopathy. CT scan negative. MR I unable to be done due to patient's pacemaker. May also be secondary to his urinary tract infection . 2.Sepsis. WBC still elevated. Procalcitonin, trending up. We will continue broad-spectrum IV anti biotics secondary to UTI with Pseudomonas. ID consulted. Appreciate Dr. Mcduffie's input. 3.Urinary tract infection with acute cystitis without hematuria secondary to Pseudomonas. Continue antibiotics. 4.Acute on chronic systolic and diastolic heart failure. We will continue Lasix and diuresis. The EF is 33% from last echo. 5.Status post pacemaker AICD. 6.End-stage renal disease, on hemodialysis. We will continue. Nephrology on board. 7.Hyperkalemia, corrected. 8.Hyponatremia, stable. Continue to monitor. Fluid restriction. 9.Hypothyroidism, on Synthroid. 10.Diabetes mellitus type 2 with long-term use of insulin without complications. 11.Atrial fibrillation chronic, paroxysmal. We will continue with aspirin. Amiodarone held due to liver dysfunction. 12.Elevated liver enzymes secondary to acute congestive heart failure. We will continue to monitor levels. 13.Hyperammonemia. We will give lactulose. 14.Essential hypertension, stable. 15.Gastrointestinal and deep venous thrombosis prophylaxis with PPI and Lovenox. Plan: Continue hemodialysis as scheduled. GI consultation for liver dysfunction and overall guarded prognosis. We will obtain EEG and Neurology consultation. SA/MODL Voice ID: [id number] Report ID: [id number]
--- NOTE | 2017-06-30 20:15 | RAD REPORT ---
EXAM DESCRIPTION: US - Abdomen Exam Complete - 06/30/2017 7:25 pm CLINICAL HISTORY: Congestive liver disease COMPARISON: CT study June 24 abdominal ultrasound study June 19 FINDINGS: Gallbladder size is normal. Gallbladder polyps are identified. There are cholesterolosis c hanges identified. No mobile gallstones confirmed. Punctate gallstones adherent to the wall would be possible. No wall thickening or pericholecystic fluid. Patient does have a trace amount of ascites. C ommon bile duct is normal with no common duct stone identified. The pancreas is normal. Liver and spleen are both prominent in size. Liver has a nodular capsular contour. Again noted are th e innumerable small round hyperechoic foci in the liver parenchyma believed to be regenerating nodule s. No hydronephrosis or suspicious mass in either kidney. Aorta is normal is size. No ascites or bulky lymphadenopathy. IMPRESSION: Small gallbladder polyps versus adherent gallstones. No mobile gallstone confirmed. No wall thickening, pericholecystic fluid or biliary tree dilatation. Patient does have a trace amoun t of ascites. Innumerable small round hyperechoic foci matching the earlier ultrasound study. These are believed to be re- degenerative nodules.
--- NOTE | 2017-06-30 20:44 | CON ---
Date of Consultation: 06/30/2017 Reason For Consultation: Abnormal liver enzymes. History Of Present Illness: Mr. Sánchez is a 71-year-old gentleman, who got admitted to the hospital s everal days ago. His original complaint of admission to the hospital is failure to thrive, severe we akness, debilitation, and shortness of breath. He states that his shortness of breath is increasingl y worsening for last several months. Health status has been deteriorating. At this time, he denies any abdominal pain, however, he does have buttock pain. There is no history of hematemesis, melena, or hematochezia. The patient seems to be a poor historian. He does not know of any liver condition that he had in the past. Does not admit to any excessive use of alcohol at this time, however, admit s that is young age, he did drink a lot of alcohol. I do not know of any history of hepatitis at [facility] from the patient. At this time, no abdominal pain that he admits to. Past Medical History: Congestive heart failure, diastolic and systolic dysfunction, atrial fibrillat ion, hypertension, questionable history of diabetes, and end-stage renal disease. The patient has be en on chronic amiodarone therapy. Medications: Reviewed in the chart. Among the medications the above is specifically important in th is relationship. Family History: Denies any gastrointestinal malignancy in the family. Social History: As elaborated above. Psychiatric History: None. Allergies: REVIEWED IN THE CHART. Review of Systems: General: He is in poor health. He does not know whether he is losing weight or not. He is short of breath. Pulmonary: No cough, however, chronic shortness of breath. Cardiovascular: Irregular S1 and S2, and as elaborated above, positive orthopnea and dyspnea. GI: As elaborated above. Hepatologic: As elaborated above. Musculoskeletal: He states that he has no strength and has stiffness, especially in the morning. Genitourinary: No complaint. Neuropsychiatric: No complaint. Neuroendocrine: No complaint. Physical Examination: General: Elderly male. Hemodynamic and respiratory profile at this time within acceptable range, ho wever, he is apparently short of breath. HEENT: Atraumatic and normocephalic. Bitemporal wasting. Trachea central in position. Use of acce ssory muscles of respiration is being used. Conjunctivae are flushed. No pallor. Mild icterus. Chest: Poor air exchange bilaterally. Cardiac: S1 and S2 is irregular. There is also a systolic murmur. Abdomen: Soft, nontender, and nondistended. Bowel sounds present. No hepatomegaly. No splenomegal y that I can appreciate. No ascites, although, the patient has limited cooperation. Extremities: Upper and lower extremities are normal symmetrical. Dermatologic: Multiple bruises, both upper and lower extremities, and all over the body. Neurological: Alert oriented x3. Intact memory, mentation, and judgment. Moving all parts of extre mities. Diagnostic Data: Reviewed and analyzed. Of importance, predominantly cholestatic picture is noted, although, one can also argue that he has a mixed hepatocellular and cholestatic picture. Rest of the diagnostic data reviewed, specifically he has a very high WBC count. Impression/plan/recommendation: Mr. Sánchez is a 71-year-old gentleman with chronic amiodarone therapy predominantly cholestatic versus mixed picture of the liver. Given his end-stage renal disease, con gestive heart failure, and chronic amiodarone therapy, probably multiple factors are playing a role i ncluding amiodarone and congestive hepatopathy. Given his extreme shortness of breath, he is not natalya lified for any investigative investigation, however, an ultrasound and acute hepatitis panel will be important to rule out other causes. Main question in this case will be whether amiodarone could be withdrawn from the patient or not. I will leave question for Cardiology to answer. If amiodarone could be withdrawn safely given patient' s condition, then it could be done, however, if it could not be done, he needs to be on a chronic ami odarone therapy for life-saving purposes. I have had a discussion with the patient regarding his management. He has good understanding. He is somewhat frustrated that there is no quick treatment. However, I have tried to answer his concern a s best as I can. MARCIANO/ABRIL Voice ID: [id number] Report ID: [id number]
[2017-06-30] MEDS: ALLOPURINOL 100 MG TAB PO SCH (22:36)
[2017-07-01] MEDS: FUROSEMIDE 40 MG/4 ML VIAL IV SCH ×4 (00:06→20:27)
[2017-07-01] MEDS: ALBUTEROL 2.5 MG/3 ML NEB SOL NEB SCH ×4 (01:26→19:26)
--- NOTE | 2017-07-01 03:15 | PN ---
Date of Progress Note: 06/30/2017 Subjective: The patient status post dialysis today. Managed to remove 2200. Objective: Vital Signs: Blood pressure 101/54, pulse of 86. Chest: Clear to auscultation. Heart: S1, S2. Systolic murmur. Abdomen: Colostomy. Extremities: No edema. Laboratory Data: WBC 33.1, H and H 11.2/36.7, platelet 271. Sodium 129, potassium 4.5, bicarb 26, B UN 39, creatinine 5.9, calcium 8.4, phosphorus 3.9. Medications: Current medications the patient on is include, 1.Aspirin. 2.Cefepime. 3.Vancomycin. 4.Loratadine. 5.Amiodarone. 6.Lovenox. 7.Gabapentin. 8.Lasix 80 t.i.d. 9.Ranitidine. 10.Levothyroxine. Assessment And Plan: 1.End-stage renal disease. We will continue the patient on dialysis. 2.Secondary hyperparathyroidism, stable. No need for binder. 3.Hypertension, controlled, optimal. We will continue current medication. We will utilize blood pr essure for more ultrafiltration. 4.Urinary tract infection. We will continue current antibiotic. We will follow up with the primary . 5.Encephalopathy secondary to sepsis. Continue current antibiotic. We will follow up. 6.Hypothyroidism. I am going to go ahead and increase his levothyroxine to 50 and we will follow up . SAULO Voice ID: [id number] Report ID: [id number]
[2017-07-01 05:54] LABS: Albumin 1.9 g/dL (3.2-5.5); Phosphorus 3.7 mg/dL (2.5-4.3); Potassium 3.4 mEq/L (3.6-5.0)
[2017-07-01] MEDS: LEVOTHYROXINE SOD 0.05 MG TABLET PO SCH (06:09)
[2017-07-01 06:41] LABS: Absolute Lymphocytes (CBC) 2.3 K/uL (0.7-4.9); Absolute Neutrophil 12.4 K/uL (1.8-8.0); Basophils % 2.1 % (0-1.3); Eosinophils % 3.6 % (0-4.4); Hematocrit 35.7 % (39.6-49.0); Lymphocytes % 11.1 % (15.3-44.8); MCH 19.8 pg (27.0-35.0); MCV 67.7 fL (80-100); MPV 8.5 fL (7.6-11.3); Monocytes % 23.9 % (3.3-12.3); RBC Red Blood Cell Count 5.27 M/uL (4.33-5.43)
[2017-07-01 06:54] LABS: Protime INR 1.29
[2017-07-01 07:28] LABS: Albumin 1.9 g/dL (3.2-5.5); Bilirubin Total 3.1 mg/dL (0.3-1.2); Magnesium 2.1 mg/dL (1.8-2.5); Phosphorus 3.9 mg/dL (2.5-4.3); Potassium 3.4 mEq/L (3.6-5.0); Protein, Total 5.3 g/dL (6.0-8.3)
[2017-07-01] MEDS: LACTULOSE 20 GM/30 ML UCUP PO SCH (08:49)
[2017-07-01] MEDS: GABAPENTIN 100 MG CAP PO SCH ×2 (08:49→20:29)
[2017-07-01] MEDS: ENOXAPARIN 30 MG/0.3 ML SQ SCH (08:50)
[2017-07-01] MEDS: RANITIDINE 150 MG TABLET PO SCH (08:50)
[2017-07-01] MEDS: LORATADINE 10 MG TAB PO SCH (08:50)
[2017-07-01] MEDS: ASPIRIN EC 81 MG TAB PO SCH (08:50)
[2017-07-01] MEDS: CEFEPIME 0.5 GM in NA CHLORIDE 0.9% 50 ML IV SCH (08:50)
[2017-07-01] MEDS: HOME MED 1 EA UNK (Umeclidinium Bromide [Incruse Ellipta] 1 PUFF) PO SCH (09:00)
[2017-07-01] MEDS: SOD CHLORIDE 0.65% NASAL SPRAY NAS SCH ×2 (13:54→20:29)
--- NOTE | 2017-07-01 13:56 | EEG ---
CHART: [id number] TEST ID#: [id number] DATE OF STUDY: 06/30/2017 THE EEG WAS RECORDED PORTABLE IN THE PATIENT'S ROOM ON A 17 CHANNEL MACHINE. ELECTRODES WERE APPLIED IN THE USUAL MANNER USING THE INTERNATIONAL 10-20 SYSTEM. THE WAKING BACKGROUND RHYTHM IN THIS RECORD CONSISTS OF POORLY DEVELOPED AND POORLY ORGANIZED WAVES OF 7-8 HZ., IN A WIDE DISTRIBUTION WHICH ATTENUATE POORLY WITH EYE OPENING. LOW-VOLTAGE 15-18 HZ ACTIVITY MIXED WITH MODERATE VOLTAGE 1.5-3 HZ ACTIVITY IS EXPRESSED IN THE FRONTAL REGIONS. THERE ARE NO FOCAL OR LATERALIZING FEATURES. NO EPILEPTIFORM ACTIVITY APPEARS. SLEEP OCCURRED NATURALLY. IN ADDITION NORMAL SLEEP PATTERNS ARE PRESENT. HYPERVENTILATION WAS NOT PERFORMED. PHOTIC STIMULATION PRODUCED NO DRIVING BILATERALLY. IMPRESSION: THIS IS A MODERATELY ABNORMAL EEG DUE TO A MODERATELY SLOW BACKGROUND. THIS IS A NON-SPECIFIC FINDING INDICATING THE PRESENCE OF A MODERATE DIFFUSE DISTURBANCE IN CEREBRAL ACTIVITY. NO EPILEPTIFORM ACTIVITY IS RECORDED.
--- NOTE | 2017-07-01 15:39 | PN ---
Date of Progress Note: 07/01/2017 History: The patient seen and examined. Chart reviewed and case discussed with RN, at the beds sera. Treatment plan explained. All questions answered. According to her, the patient's mental stat us has improved. No episodes of hallucination or confusion. Review of Systems: Negative except as above. Medications: Reviewed. Physical Examination: Vital Signs: Temperature 97.8, heart rate 88, blood pressure 102/58, respirations 16, O2 97% on 2 L via nasal cannula. General: Awake, alert, oriented x3. Some mild distress. Elderly male. CV: S1, S2. Peripheral pulses present. Regular rate and rhythm. Respiratory: Moving air well bilaterally. No wheezing. No stridor gastrointestinal. Abdomen: Abdomen is soft, nontender, nondistended. Positive bowel sounds. Extremities: No clubbing, cyanosis, with trace pedal edema. Neurologic: Nonfocal. Laboratory Data: Sodium 130, potassium 3.4, chloride 95, CO2 25, BUN 31, creatinine 4.94, glucose 89 , calcium 8.5, phosphorus 3.9, magnesium 2.1, AST 187, ALT 99, alkaline phosphatase 434, ammonia 49, albumin 1.9, INR 1.29. WBC 20.9, H and H 10.5 and 35.7, platelets 254, neutrophils 59%. Urine cultu re shows Pseudomonas aeruginosa. Blood cultures no growth to date. Assessment And Plan: A 71-year-old male with: 1.Acute metabolic encephalopathy, multifactorial secondary to urinary tract infection and hepatic en cephalopathy with elevated ammonia, improving. No further hallucinations. The patient is more alert and oriented. 2.Sepsis. White blood cell improving. Sepsis is resolving. We will continue broad-spectrum IV ant ibiotics. Sepsis secondary to urinary tract infection with Pseudomonas. ID on the case. 3.Urinary tract infection, acute cystitis without hematuria secondary to Pseudomonas. Continue IV a ntibiotics. 4.Acute on chronic systolic and diastolic heart failure. Continue diuresis and congestive heart ariadna lure guidelines. Ejection fraction is 33%. 5.Status post AICD. 6.End-stage renal disease, on hemodialysis. Continue dialysis per Nephrology. 7.Hypokalemia. We will replace and monitor. 8.Hyponatremia. Stable. Continue fluid restriction. 9.Hypothyroidism, Synthroid. 10.Diabetes mellitus type 2 with long-term use of insulin without complications. Continue sliding s rob insulin. 11.Atrial fibrillation, paroxysmal. We will continue aspirin. Amiodarone held due to elevated live r enzymes. 12.Elevated liver enzymes secondary to acute congestive heart failure. We will continue to trend LF Ts. 13.Hyperammonemia, improving. 14.Essential hypertension, stable. 15.Gastrointestinal and deep venous thrombosis prophylaxis PPI and Lovenox. Plan: Continue hemodialysis. Appreciate consultants' input. MAGDA Voice ID: [id number] Report ID: [id number]
--- NOTE | 2017-07-01 16:21 | PN ---
Subjective: The patient is sitting in bed, having lunch, not in any acute distress. Denies any head ache, nausea, vomiting, abdominal pain, constipation, or diarrhea. Objective: Vital Signs: Temperature 97.8, pulse 88, respirations 16, blood pressure 102/58. Lungs: Basal crackles, improved. Heart: S1, S2. Regular. Abdomen: Soft, nontender. Bowel sounds positive. Extremity: Trace edema. Laboratory Data: Shows WBC 71874, hemoglobin 10.5, platelets are 254. Chemistry shows sodium 130, p otassium 3.4, chloride 95, bicarbonate 25, BUN 31, creatinine 4.9. Current Medications: Include cefepime and vancomycin. Laboratory Data: Urine cultures growing Pseudomonas aeruginosa. Assessment And Plan: 1.Urinary tract infection secondary to Pseudomonas. 2.End-stage renal disease, currently being treated with cefepime and vancomycin. 3.Leukocytosis. 4.Polycythemia vera. We will follow the patient as needed. HERMILO/MODL Voice ID: [id number] Report ID: [id number]
--- NOTE | 2017-07-01 18:54 | CON ---
Reason For Consultation: Mr. Sánchez's consultation was called because of weakness and confusion. History Of Present Illness: Mr. Sánchez is a 71-year-old right-handed patient with multiple reasons for his encephalopathy, on admission was found to be septic. Also has end-stage renal diseas e, on hemodialysis. He has severe pulmonary hypertension with congestive heart failure, chronic obst ructive pulmonary disease. The patient was admitted on the with some confusion, although not fu rther specified. He did report however some headache and sore throat and became progressively weak a nd less interactive. The patient's evaluation revealed a very elevated white count of 26,000 with ne utrophils 76.7%. [place] [address] at 79%. He did have cultures that grew Pseudomonas aeru ginosa. This was a clean-catch urine culture on the . Throat cultures from the which was n ormal respiratory lo and blood cultures x2 from showed no growth in 24 hours. He did receive multiple antibiotics including vancomycin and cefepime. Since hospitalization, he has been afebrile and has returned to his baseline cognition, although he is diffusely weak in upper and lower extremi ties. Past Medical History: As indicated above in addition to hypertension, diabetes mellitus, polycythemi a vera, diverticulitis, dyslipidemia. He has gout and end-stage renal disease on hemodialysis. Past Surgical History: Colostomy, cyst removal from his back, neck surgery, right shoulder repair, h ernia repair, and access for hemodialysis. Family History: Positive for hypertension in father and heart disease in mother along with stroke. Social History: No recent alcohol, tobacco, or IV drug use. Allergies: SHELLFISH, CIPROFLOXACIN, METFORMIN, CAUSED SHORTNESS OF BREATH. Medications: Currently allopurinol 100 mg twice daily, albuterol nebulizer, amiodarone 200 mg daily, aspirin 81 mg daily, cefepime 0.5 g daily, IV Lovenox 30 mg subcutaneously daily, Lasix 80 mg every 8 hours, gabapentin 300 mg twice daily. He has heparin with his hemodialysis. Synthroid 0.05 mg monica ly, Claritin 10 mg daily, melatonin 9 mg at bedtime, Zofran 4 mg as needed, ranitidine 300 mg daily, vancomycin 1 g after each dialysis. Review of Systems: As indicated, Mr. Sánchez is diffusely weak in upper and lower extremities. He has easy fatigue and fa tigue intolerance. He has some slurring of speech and slow responses per the patient. Some mild tom lgias and arthralgias. No headaches. No weight change. No psychiatric complaints. Physical Examination: Vital Signs: Blood pressure 103/58, pulse 95, respiratory rate 18, temperature 99.5, oxygen saturati on 93%. Weight 173 pounds, height 6 feet. General: Mr. Sánchez is resting in bed. He is in no acute distress. He appears normocephalic, atraum atic. Sclerae are anicteric. Oropharynx moist and pink. Neck: Supple. Chest: Clear. Abdomen: Shows mildly obese, but no leann distention. Extremities: Show some venous stasis changes. Neurologic: He is alert and oriented to situation and place, follows commands appropriately. Crania l nerves 2 through 12 showed no deficits. Motor exam; diffusely weak 4+, upper and lower extremities to 3+. Sensation decreased in a stocking-glove fashion, light touch and temperature, decreased refl exes as well. Coordination is slow but intact in upper and lower extremities. He does require mod t o max assist for gait. Laboratory Data: His basic metabolic panel shows sodium low of 130, potassium 3.4, chloride 95, carb on dioxide 25, BUN 31, creatinine 4.94. Ammonia is elevated to 49, AST 187, ALT 99, alkaline phospha tase 434. Vanc level of 12.1. Hepatitis panel is pending. He has 1+ ketones and 2+ protein in the urine. Most recent white count 29.9. Assessment: Mr. Sánchez is a 71-year-old patient with likely metabolic and toxic from urinary tract in fection, encephalopathy. He does have polycythemia vera, end-stage renal disease and is on hemodialy sis. Ammonia and liver functions are likely elevated as indicated. His EEG, which was done earlier today shows a mild to moderately diffusely slow background with a slow posterior dominant rhythm. Th at study is consistent with a diffuse, but nonspecific [id number] disturbance in cerebral funct ion. Plan: 1.Continue with hemodialysis and treatment of his urinary tract infection as indicated. 2.Continue with electrolyte correction on his dialysis. 3.Continue all other medications as indicated. The patient has no evidence of a focal neurologic de ficit or a stroke. He may be discharged to home and to follow up in clinic with Dr. Granger 1 month later. DORIAN/ABRIL Voice ID: [id number] Report ID: [id number]
[2017-07-01] MEDS: ALLOPURINOL 100 MG TAB PO SCH (20:29)
--- NOTE | 2017-07-01 21:30 | PN ---
Date of Progress Note: 07/01/2017 Subjective: The patient is more awake today. Alert. Physical Examination: Vital Signs: Blood pressure 106/56, pulse of 86, afebrile. Chest: Clear to auscultation. Heart: S1, S2. Regular. Abdomen: Soft, nontender. Extremities: Trace edema. Dressing on the right leg. Laboratory Data: WBC 20.9, H and H 10.5/35.7, platelet 254. Sodium 130, potassium 3.4, bicarb 25, B UN 31, creatinine 4.9, calcium 8.5, phosphorus 3.9. Medications: Current medications the patient on include; 1.Aspirin. 2.Cefepime. 3.Vancomycin. 4.Loratadine. 5.Lovenox. 6.Lasix 80 t.i.d. 7.Gabapentin. 8.Amiodarone. 9.Zofran. 10.Allopurinol. 11.Levothyroxine 50. Culture growing Pseudomonas in the urine. Assessment And Plan: 1.End-stage renal disease. Normal volume. I am going to continue the patient on dialysis. The pat ient dialyzed yesterday. Due for dialysis tomorrow. We will monitor the patient. 2.Hypertension, controlled, optimal. Continue current medication. 3.Congestive heart failure. Looks to me, normal volume. I am going to go ahead and arrange to decr ease his Lasix to twice a day and we will follow up. 4.Urinary tract infection. Continue current antibiotic. 5.Secondary hyperparathyroidism. No need for binder. 6.Polycythemia vera. Stable. MICHELLE/ABRIL Voice ID: [id number] Report ID: [id number]
[2017-07-02] MEDS: ALBUTEROL 2.5 MG/3 ML NEB SOL NEB SCH ×4 (01:51→19:54)
[2017-07-02 05:15] LABS: Absolute Lymphocytes (CBC) 2.9 K/uL (0.7-4.9); Absolute Monocytes 4.7 K/uL (0.1-1.3); Eosinophils % 4.5 % (0-4.4); Hematocrit 35.7 % (39.6-49.0); Lymphocytes % 14.6 % (15.3-44.8); MCH 19.9 pg (27.0-35.0); MCV 68.5 fL (80-100); MPV 8.5 fL (7.6-11.3); Monocytes % 23.8 % (3.3-12.3); RBC Red Blood Cell Count 5.21 M/uL (4.33-5.43)
[2017-07-02] MEDS: LEVOTHYROXINE SOD 0.05 MG TABLET PO SCH (05:27)
[2017-07-02 05:30] LABS: Albumin 1.8 g/dL (3.2-5.5); Bilirubin Total 2.6 mg/dL (0.3-1.2); Potassium 3.9 mEq/L (3.6-5.0); Protein, Total 5.3 g/dL (6.0-8.3)
--- NOTE | 2017-07-02 06:31 | CON ---
Date of Consultation: 07/01/2017 I saw the patient on 07/01/2017. Reason For Consultation: Elevated liver function tests, atrial fibrillation, and amiodarone therapy. History Of Present Illness: Mr. Sánchez is a 71-year-old male. He is known to us from previous office visits and admissions. He basically has a known past medical history of congestive heart failure; e nd-stage renal disease, on hemodialysis; COPD; diabetes; hypertension; and asthma. Has a pacemaker a nd defibrillator. Has had a history of hip replacement, hernia repair, a perforated colon in the pas t, and a colostomy. He was admitted with fever, weakness, and sore throat on 06/27/2017. Liver func tion enzymes were noted to be very elevated and we were consulted to see if he can come off the amiod arone therapy. At the present time, no cardiac symptoms have been elicited by him. Past Medical History: As stated above. Allergies: HE IS ALLERGIC TO CIPROFLOXACIN, METFORMIN, AND SHELLFISH. Medications: At home are extensive and include Ventolin inhaler, allopurinol, amiodarone 200 mg jose manuel y. He is on aspirin, Lipitor 20 mg daily, gabapentin. He is on Tarceva. He is on levothyroxine, mu ltiple multivitamins. He is on prednisone, ranitidine. Review of Systems: Negative. Social History: Negative. Family History: Noncontributory. Physical Examination: General: When I saw him, his vital signs were stable. He was afebrile. Vital Signs: Blood pressur e was 101/57, temperature was 97.1. He was in normal rhythm. His I's and O's were 750 in. No urine output. The patient is on dialysis. His O2 saturation was 99% on 2 L of nasal cannula. HEENT: Negative. Neck: Supple with no bruit. Chest: Clear. Cardiac: Revealed a regular rhythm and rate without any murmurs, gallops, or rubs. Abdomen: Benign. Extremities: Revealed no clubbing, cyanosis, or edema. Diagnostic Data: His hemoglobin is 10.4. His white count was 19,000. His creatinine was 4.94. His AST was 176, ALT was 94, his alkaline phosphatase was 463. A hepatitis panel was still pending. Mt s chest x-ray was unremarkable on June 27, 2017. His EKG shows sinus rhythm with first-degree AV bl ock and nonspecific intraventricular conduction delay. Impression And Plan: 1.Elevated liver function tests, they do not appear to be the type that we see with cardiogenic shoc k or passive congestions. Usually those numbers are much higher. It is certainly possible that his sepsis, renal failure, and polycythemia vera may be responsible for some of his elevated liver functi on tests. He has been seen by Infectious Disease and antibiotics are being administered. I would fe el much more comfortable with him being off the amiodarone considering his liver function tests at is point. He is in normal rhythm. He has a pacemaker. He has a defibrillator. He does not tolerat e anticoagulants or cannot afford them and he is only taking aspirin from an atrial fibrillation calvin dpoint, but as stated earlier, he has been in normal rhythm and we will watch him off the amiodarone. I do not expect the liver function tests to come down rapidly if it is amiodarone related. The ami odarone has a very long half-life. We may not see any changes up to at least 1 month. This was disc ussed with Dr. Medina. His other problems include chronic systolic congestive heart failure, status p ost AICD and pacemaker that seems to be stable at this point. 2.End-stage renal disease, on hemodialysis. 3.Chronic obstructive pulmonary disease. 4.Hypertension, well controlled. 5.Diabetes. 6.History of perforated colon in the past. 7.Status post hip replacement. 8.Status post hernia repair. Beside the amiodarone, I will continue his present regimen. I do not see the need of repeating any cardiac workup at this point. I believe Mr. Sánchez usually gets his followup at the [facility]. I will be available for further questioning if the need arises. ABDIRAHMAN/ABRIL Voice ID: [id number] Report ID: [id number]
[2017-07-02] MEDS: HOME MED 1 EA UNK (Umeclidinium Bromide [Incruse Ellipta] 1 PUFF) PO SCH (09:00)
[2017-07-02] MEDS: FUROSEMIDE 40 MG/4 ML VIAL IV SCH ×2 (09:00→21:00)
[2017-07-02] MEDS: SOD CHLORIDE 0.65% NASAL SPRAY NAS SCH (09:26)
[2017-07-02] MEDS: RANITIDINE 150 MG TABLET PO SCH (09:27)
[2017-07-02] MEDS: GABAPENTIN 100 MG CAP PO SCH (09:27)
[2017-07-02] MEDS: ASPIRIN EC 81 MG TAB PO SCH (09:27)
[2017-07-02] MEDS: ENOXAPARIN 30 MG/0.3 ML SQ SCH (09:27)
[2017-07-02] MEDS: Rifaximin 550 MG Tab PO SCH (09:27)
[2017-07-02] MEDS: LORATADINE 10 MG TAB PO SCH (09:28)
[2017-07-02] MEDS: CEFEPIME 0.5 GM in NA CHLORIDE 0.9% 50 ML IV SCH (09:28)
--- NOTE | 2017-07-02 12:22 | PN ---
Date of Progress Note: 07/02/2017 Subjective: The patient is seen and examined. Chart reviewed and case discussed with RN. The patie nt doing significantly better. Case also discussed with Dr. Giles. The patient still having some mild jerking movements, but no resting dystonic reactions. The patient is back to baseline mental s tatus. Denies any pain. Review of Systems: Negative except as above. Medications: Reviewed. Physical Examination: Vital Signs: Temperature 97.7, heart rate 81, blood pressure 104/55, respirations 18, O2 98% on 2 L via nasal cannula. General: Awake, alert, oriented x3. No acute distress. Elderly male, somewhat ill-appearing. CV: S1, S2. Regular rate and rhythm. Peripheral pulses present. Respiratory: Clear to auscultation bilaterally. No wheezing. Abdomen: Soft, nontender, nondistended. Positive bowel sounds. Extremities: No clubbing, cyanosis. Trace pedal edema. Neurologic: Nonfocal. The patient does have some jerking movements with movement. Skin: Multiple abrasions on the bilateral lower extremities. Laboratory Data: Sodium 131, potassium 3.9, chloride 95, CO2 22, BUN 34, creatinine 5.45, glucose 93 , calcium 8.5, phosphorus 4, total bilirubin 2.6, AST 176, ALT 94, alkaline phosphatase 463, total pr otein 5.3, albumin 1.8. Cortisol 7.8. WBC 19.9, H and H 10.4, 35.7, platelets 238. Assessment: A 71-year-old male with acute metabolic encephalopathy, multifactorial secondary to urin megan tract infection and hepatic encephalopathy, resolved. 1.Sepsis. WBC count improving, back to his baseline secondary to polycythemia vera. Continue broad -spectrum IV antibiotics. Urine culture-just show Pseudomonas. Appreciate ID input. 2.Urinary tract infection, acute cystitis without hematuria secondary to Pseudomonas. Continue IV a ntibiotics. 3.Acute on chronic systolic and diastolic heart failure. We will adjust IV Lasix and continue conge stive heart failure guidelines. EF is 33%. 4.Status post AICD. 5.End-stage renal disease, on hemodialysis. Nephrology on board. 6.Hypokalemia, replace and monitor. 7.Hyponatremia, trending up. We will continue to monitor. 8.Diabetes mellitus type 2 with long-term use of insulin without complications. We will continue sl iding scale insulin. 9.Atrial fibrillation, paroxysmal. Amiodarone has been discontinued. Appreciate Dr. Encarnacion's inpu t. Continue aspirin. 10.Elevated liver enzymes secondary to passive congestion from congestive heart failure. We will co ntinue to monitor. 11.Essential hypertension, stable. 12.Gastrointestinal and deep venous thrombosis prophylaxis with PPI and Lovenox. Plan: Initiate physical therapy evaluation and mobilize the patient. We will likely DC in the next 24-48 hours. /ALAINAL Voice ID: [id number] Report ID: [id number]
--- NOTE | 2017-07-02 16:04 | RAD REPORT ---
EXAM DESCRIPTION: RAD - Chest Single View - 07/02/2017 3:44 pm CLINICAL HISTORY: Shortness of breath, COPD COMPARISON: 06/27/2017, 03/23/2017 FINDINGS: Portable technique limits examination quality. Small right pleural effusion is likely present. Mild linear atelectasis in the right lung base suspec tanya. The lungs are otherwise clear. The heart is upper limit normal size with a single lead pacer/ de fibrillator device present. Right-sided venous catheter tip in the SVC. No displaced fractures.
[2017-07-03] MEDS: ALLOPURINOL 100 MG TAB PO SCH ×2 (00:20→20:17)
[2017-07-03] MEDS: GABAPENTIN 100 MG CAP PO SCH ×3 (00:20→20:17)
[2017-07-03] MEDS: Rifaximin 550 MG Tab PO SCH ×3 (00:20→20:17)
[2017-07-03] MEDS: SOD CHLORIDE 0.65% NASAL SPRAY NAS SCH ×3 (00:25→21:00)
[2017-07-03] MEDS: ALBUTEROL 2.5 MG/3 ML NEB SOL NEB SCH ×4 (01:39→19:19)
--- NOTE | 2017-07-03 01:59 | PN ---
Date of Progress Note: 07/02/2017 Subjective: This patient more awake. No shortness of breath. The patient maintained on dialysis. Scheduled for dialysis today. Still has good urine output. Physical Examination: Vital Signs: Blood pressure of 103/55, pulse of 85. Afebrile. Chest: Clear to auscultation. Heart: S1, S2. Regular rhythm. Abdomen: Soft, nontender. Extremity: Plus edema. Laboratory Data: WBC 19.9, H and H 10.4/35.7, platelet of 238. Sodium 131, potassium 3.9, bicarb 22 . BUN 34, creatinine 5.4, calcium 8.5. Phosphorus of 4. Diagnostic Data: Chest x-ray done today, cardiomegaly. No significant congestion. Current Medications: Current medications the patient on include; 1.Loratadine. 2.Cefepime. 3.Xifaxan. 4.Lovenox. 5.Amiodarone. 6.Gabapentin. 7.Lasix 80 b.i.d. 8.Ranitidine. 9.Levothyroxine. 10.Melatonin. Assessment And Plan: 1.End-stage renal disease, looks to me, normal volume. We will continue the patient on dialysis. T he patient stable. We will monitor. 2.Hypertension, controlled, optimal. Continue current medication. 3.Pneumonia. Continue current antibiotic. We will follow up. SAULO Voice ID: [id number] Report ID: [id number]
[2017-07-03] MEDS: LEVOTHYROXINE SOD 0.05 MG TABLET PO SCH (05:15)
[2017-07-03 05:56] LABS: Absolute Lymphocytes (CBC) 2.5 K/uL (0.7-4.9); Absolute Monocytes 3.5 K/uL (0.1-1.3); Absolute Neutrophil 9.8 K/uL (1.8-8.0); Eosinophils % 5.1 % (0-4.4); Hematocrit 36.6 % (39.6-49.0); Lymphocytes % 14.8 % (15.3-44.8); MCH 19.9 pg (27.0-35.0); MCV 67.7 fL (80-100); MPV 8.5 fL (7.6-11.3); Monocytes % 20.6 % (3.3-12.3); RBC Red Blood Cell Count 5.41 M/uL (4.33-5.43)
[2017-07-03 06:16] LABS: Albumin 1.9 g/dL (3.2-5.5); Bilirubin Total 3.2 mg/dL (0.3-1.2); Phosphorus 3.5 mg/dL (2.5-4.3); Potassium 3.6 mEq/L (3.6-5.0); Protein, Total 5.5 g/dL (6.0-8.3)
[2017-07-03] MEDS: HOME MED 1 EA UNK (Umeclidinium Bromide [Incruse Ellipta] 1 PUFF) PO SCH (09:00)
[2017-07-03] MEDS ORDERED: NYSTATIN PWDR 100000 UNIT/GM TOP PRN (09:02)
[2017-07-03] MEDS: CEFEPIME 0.5 GM in NA CHLORIDE 0.9% 50 ML IV SCH (09:09)
[2017-07-03] MEDS: RANITIDINE 150 MG TABLET PO SCH (09:10)
[2017-07-03] MEDS: LORATADINE 10 MG TAB PO SCH (09:10)
[2017-07-03] MEDS: ASPIRIN EC 81 MG TAB PO SCH (09:10)
[2017-07-03] MEDS: ENOXAPARIN 30 MG/0.3 ML SQ SCH (09:10)
[2017-07-03] MEDS: FUROSEMIDE 40 MG/4 ML VIAL IV SCH ×2 (09:11→20:17)
--- NOTE | 2017-07-03 16:44 | PN ---
Date of Progress Note: 07/03/2017 NEPHROLOGY FOLLOWUP Subjective: The patient more awake, complaining of tremor. Physical Examination: Vital Signs: Blood pressure 112/59, pulse of 89. The patient had good urine output of 500. The patient had ultrafiltration of 1600. Chest: Clear to auscultation. Heart: S1, S2. Regular. Abdomen: Soft, nontender. Extremities: Trace edema. Dressing on the left leg. Laboratory Data: WBC down to 16.9, H and H 10/36, platelet of 211. Sodium 133 , potassium 3.6, bicarb 21, BUN 21, creatinine 4.3, GFR of 14, calcium 8.3, phosphorus 3.5. Medications: Current medications the patient is on includes: 1. Aspirin. 2. Cefepime. 3. Melatonin. 4. Loperamide. 5. Allopurinol. 6. Lovenox. 7. Gabapentin. 8. Lasix 80 b.i.d. 9. Ranitidine. 10. Zofran. 11. Levothyroxine. Diagnostic Data: Chest x-ray, slight congestion, cardiomegaly; compared to old chest x-ray slightly worsening. Assessment And Plan: 1. End-stage renal disease. We will continue the patient on dialysis Tuesday, Tuesday, Tuesday. The patient is going to be due for dialysis tomorrow. 2. Secondary hyperparathyroidism, stable. The patient off binder. We will keep holding it. 3. Hypothyroidism. Continue supplement. 4. Congestive heart failure. Looks to me euvolemic. Right now, we will continue current dose of Lasix. I am going to continue ultrafiltration on the dialysis. We will follow up. 5. Urinary tract infection. Continue current antibiotics. Culture sensitive , also Pseudomonas. Continue cefepime. We will follow up. 6. Deconditioning. Continue PT/OT. MICHELLE/ABRIL Voice ID: [id number] Report ID: [id number] BECKIE
--- NOTE | 2017-07-03 19:02 | RAD REPORT ---
EXAM DESCRIPTION: RAD - Ankle Left 2 View - 07/03/2017 6:44 pm CLINICAL HISTORY: Left ankle pain FINDINGS: No fracture or dislocation is seen. Mild osteoarthritis is present. Vascular calcifications are seen. No bony destructive lesion is note d
[2017-07-03 19:59] LABS: HBsAG Nonreactive (Nonreactive); Hepatitis A IgM Antibody Nonreactive
--- NOTE | 2017-07-03 23:11 | DS ---
Date of Discharge: 07/03/2017 Consultants: Dmitry Granger MD, Neurology; Aaron Encarnacion MD, Cardiology; Roel Mcduffie MD, with Infectious Disease; Juan Giles M.D., Nephrology; Ana Arzate MD, with GI. Procedures: Done. Admitting Diagnoses: 1. Generalized weakness. 2. Sepsis. 3. Gtgeu-nt-mkefelk combined systolic diastolic heart failure. 4. Status post pacemaker and automated implantable cardioverter-defibrillator. 5. End-stage renal disease, on hemodialysis. 6. Severe chronic obstructive pulmonary disease with chronic respiratory failure. 7. Atrial fibrillation, chronic, on amiodarone and aspirin for anticoagulation. 8. Diabetes mellitus type 2 with long-term use of insulin without complications. 9. Essential hypertension. 10. Hypokalemia. 11. Hyponatremia. 12. Hypothyroidism. Discharge Diagnoses: 1. Sepsis, improved. 2. Polycythemia vera. 3. Urinary tract infection, acute cystitis without hematuria secondary to Pseudomonas, treated with cefepime. 4. Kvdun-hc-iacqwhc combined systolic and diastolic heart failure, ejection fraction 33%. 5. Status post pacemaker and automated implantable cardioverter-defibrillator. 6. End-stage renal disease, on hemodialysis. 7. Hypokalemia, replaced. 8. Hyponatremia. 9. Diabetes mellitus type 2 with long-term use of insulin without complications. 10. Atrial fibrillation, paroxysmal. Amiodarone discontinued. 11. Elevated liver enzymes secondary to passive congestion from heart failure and amiodarone. 12. Essential hypertension. Hospital Course: The patient is a 71-year-old male who was readmitted to the hospital after recent discharge on 06/21/2017. The patient was admitted for generalized weakness. He had become progressively weak since returning to home from the hospital. Upon arrival, his workup did reveal elevated procalcitonin level. White count was 26,000. Of note, his white count does stay around 20, 000, which is his baseline due to his polycythemia vera. The patient was started on broad-spectrum IV antibiotics. His electrolytes were corrected. Nephrology was consulted for his hemodialysis. The patient's cultures grew Pseudomonas aeruginosa in urine, which was pansensitive. He was started on cefepime. His blood cultures did not grow any bacteria, final. His white count initially increased but then did improve. His sepsis resolved. His mental status also improved. Initially, his mental status deteriorated. The patient has some hallucinations and dystonic reactions. His steroids were held. Neurology consultation was obtained. EEG was done, which showed diffuse slowing consistent with metabolic encephalopathy. The patient was unable to have MRI of the brain done due to his pacemaker. CT scan of the head did not show any acute changes. The patient's liver enzymes were also elevated. Therefore, his statin was discontinued as well as his amiodarone. Cardiology was consulted and agreed with discontinuation of the amiodarone. The patient, regardless, stays mostly in sinus rhythm and is paced. The patient's symptoms improved. He was back to his baseline. Mental status also improved. The patient was then cleared for discharge from school plant consultant's standpoint. Infectious Disease, Dr. Mcduffie, was also consulted, who agreed with antibiotic treatment. The patient was also seen by GI, Dr. Arzate, for his elevated liver enzymes. Hepatitis panel was done, which was nonreactive. The patient was then discharged home in a fair condition. Activity: As tolerated. Medications: As per medication reconciliation. Followup: Follow up with primary care physician in 2-3 days. Follow up with Infectious Disease, Dr. Mcduffie, in 2 weeks. Follow up with neurologist, Dr. Granger, in one month. Follow up with curling machine operator, Dr. Encarnacion, in 2 weeks. Follow up with gang supervisor, Dr. Giles, in 2 weeks. Return to the ER for worsening condition. Diet: Heart healthy fluid-restricted diet, low-sodium diet. Fall precautions. Discharge Physical Examination: General: Awake, alert, oriented, in no acute distress. CV: S1, S2. No murmurs. Respiratory: Clear to auscultation bilaterally. No wheezing. Abdomen: Soft, nontender, nondistended. Positive bowel sounds. Extremities: No clubbing or cyanosis. The patient does have some peripheral edema. Skin: The patient has some fungal skin infection in the groin area. Neurologic: Nonfocal. Total time spent discharging the patient was 37 minutes. Addendum: Patient had some mild bleeding from his colostomy site and was not discharged. Please see subsequent progress note for further details /ABRIL Voice ID: [id number] Report ID: [id number] [email or web address]
[2017-07-04] MEDS: ALBUTEROL 2.5 MG/3 ML NEB SOL NEB SCH ×4 (03:30→20:05)
[2017-07-04 05:16] LABS: Absolute Neutrophil 12.2 K/uL (1.8-8.0); Basophils % 4.8 % (0-1.3); Eosinophils % 4.6 % (0-4.4); Hematocrit 37.2 % (39.6-49.0); Lymphocytes % 20.3 % (15.3-44.8); MCH 20.3 pg (27.0-35.0); MCV 68.3 fL (80-100); MPV 8.6 fL (7.6-11.3); Monocytes % 20.5 % (3.3-12.3); RBC Red Blood Cell Count 5.45 M/uL (4.33-5.43)
[2017-07-04 05:30] LABS: Albumin 1.8 g/dL (3.2-5.5); Bilirubin Total 4.1 mg/dL (0.3-1.2); Potassium 4.2 mEq/L (3.6-5.0); Protein, Total 5.4 g/dL (6.0-8.3)
[2017-07-04] MEDS: LEVOTHYROXINE SOD 0.05 MG TABLET PO SCH (05:49)
[2017-07-04 06:15] LABS: Anisocytosis 3+; Blood Morphology Comment NOTED (NOT SEEN); Macrocytosis SLIGHT; Platelet Estimate ADEQ; Platelets, Giant MODERATE #
[2017-07-04 06:16] LABS: Hypochromasia 1+; Ovalocytes SLIGHT; Polychromasia SLIGHT
[2017-07-04 06:49] VITALS: BMI 23.3
[2017-07-04] MEDS: SOD CHLORIDE 0.65% NASAL SPRAY NAS SCH ×2 (09:00→21:00)
[2017-07-04] MEDS: HOME MED 1 EA UNK (Umeclidinium Bromide [Incruse Ellipta] 1 PUFF) PO SCH (09:00)
[2017-07-04] MEDS: LORATADINE 10 MG TAB PO SCH (09:50)
[2017-07-04] MEDS: GABAPENTIN 100 MG CAP PO SCH ×2 (09:50→21:04)
[2017-07-04] MEDS: CEFEPIME 0.5 GM in NA CHLORIDE 0.9% 50 ML IV SCH (09:50)
[2017-07-04] MEDS: RANITIDINE 150 MG TABLET PO SCH (09:50)
[2017-07-04] MEDS: ASPIRIN EC 81 MG TAB PO SCH (09:50)
[2017-07-04] MEDS: Rifaximin 550 MG Tab PO SCH ×2 (09:51→21:05)
[2017-07-04] MEDS: FUROSEMIDE 40 MG/4 ML VIAL IV SCH ×2 (09:52→21:03)
--- NOTE | 2017-07-04 11:59 | RAD REPORT ---
EXAM DESCRIPTION: CT - Head Brain Wo Cont - 07/04/2017 11:45 am CLINICAL HISTORY: Fall, head injury. COMPARISON: 06/29/2017, 06/18/2017 TECHNIQUE: All CT scans are performed using dose optimization technique as appropriate and may inclu de automated exposure control or mA/KV adjustment according to patient size. FINDINGS: No intracranial hemorrhage, hydrocephalus or extra-axial fluid collection.Mild brain atrop hy is seen with mild periventricular and deep white matter chronic microvascular ischemic changes.No areas of brain edema or evidence of midline shift. The paranasal sinuses and mastoids are clear. The calvarium is intact. Small posterior scalp hematoma seen. IMPRESSION: No acute intracranial abnormality.
[2017-07-04] MEDS: LACTULOSE 20 GM/30 ML UCUP PO SCH ×2 (12:02→21:02)
--- NOTE | 2017-07-04 12:42 | PN ---
Date of Progress Note: 07/04/2017 Subjective: The patient is seen and examined, chart reviewed, and case discussed with RN, Dr. Granger and Dr. Mcduffie. No family at the bedside. The patient was discharged yesterday; however, prior to leaving, changed out the colostomy bag and noticed a significant amount of bleeding from the colostomy site. Therefore, discharge was held. Last night, the patient was found on the floor. Apparently, he tried to get up. The patient slightly more confused today and having worsened tremors. Review of Systems: Negative except as above. Medications: Reviewed. Physical Examination: Vital Signs: Temperature 98.4, heart rate 92, blood pressure 108/58, respirations 18, and O2 93% on 2 L via nasal cannula. General: Awake, alert, oriented x3, in some mild distress ill-appearing elderly male. CV: S1, S2. No murmurs. Peripheral pulses present bilaterally. Respiratory: moving air well bilaterally. No wheezing. Abdomen: Soft, nontender, nondistended. Colostomy bag in place. No bleeding. Extremities: No clubbing, cyanosis. Trace pedal edema. Neurologic: Nonfocal. The patient does have a tremor with movement. Skin: Multiple abrasions on the lower extremity. Musculoskeletal: Right knee erythema, effusion, and some tenderness to palpation. Laboratory Data: Sodium 132, potassium 4.2, chloride 100, CO2 21, BUN 26, creatinine 5.15, glucose 88, calcium 8.5, AST 169, ALT 86, alkaline phosphatase 515, ammonia 69, and albumin 1.8. WBC 24.6, H and H 11.1, 37.2, and platelets 255. Urine culture shows Pseudomonas aeruginosa. Blood cultures negative final. Assessment: A 71-year-old male with; 1. Sepsis. WBC jumped up again, may be due to acute phase reaction as the patient had a fall. Continue cefepime for Pseudomonas and urine culture. 2. Urinary tract infection, acute cystitis without hematuria, secondary to Pseudomonas. Continue cefepime. 3. Status post fall. The patient on a bed alarm, bed rest, fall precautions. We will obtain head CT scan due to tremors. 4. Acute on chronic combined systolic and diastolic heart failure. We will continue congestive heart failure guidelines, IV Lasix, ejection fraction 33%. 5. Status post AICD. 6. End-stage renal disease, on hemodialysis. 7. Hyponatremia, improving. 8. Diabetes mellitus type 2 with long-term use of insulin without complications. Continue sliding scale insulin. 9. Atrial fibrillation, paroxysmal. Continue aspirin. 10. Elevated liver enzymes secondary to congestion from congestive heart failure and possibly amiodarone side effect. Amiodarone has been discontinued. 11. Tremors, unclear etiology, may be related to hepatic dysfunction. We will touch base with Neurology. 12. Essential hypertension, stable. Plan: We will check ammonia level, head CT scan, and neuro reeval. Repeat blood and urine cultures. /ABRIL Voice ID: [id number] Report ID: [id number]
[2017-07-04] MEDS ORDERED: HYDROCODONE/APAP 7.5/325 MG TAB PO PRN (14:39)
--- NOTE | 2017-07-04 15:03 | PN ---
Subjective: The patient had a fall yesterday after which his white blood cell count went up to 24,00 0 from 16,000. The patient not in any acute distress at this time other than some laceration to righ t hand, left hand, and left knee region. Objective: Vital Signs: Temperature 97, pulse 96, respiration 18, blood pressure 107/60. Lungs: Basal crackles. Heart: S1 and S2, regular. Abdomen: Soft, nontender. Bowel sounds positive. Extremities: Right hand, left hand, and left knee wounds noted. Laboratory Data: WBC 24,000, hemoglobin 11.1, platelets are 255. Chemistry shows sodium 133, potass ium 4.2, chloride 100, bicarb 21, BUN 26, creatinine 5.1, glucose is 88. Micro data, urine culture, Pseudomonas aeruginosa, which has been treated with IV antibiotic. Assessment And Plan: Urinary tract infection secondary to Pseudomonas aeruginosa, treated. Repeat c ultures, urine, and blood. If the patient's condition does not improve, we will follow the patient c losely. NF/MODL Voice ID: [id number] Report ID: [id number]
[2017-07-04] MEDS: ALLOPURINOL 100 MG TAB PO SCH (21:04)
--- NOTE | 2017-07-05 02:04 | PN ---
Date of Progress Note: 07/04/2017 Subjective: The patient had been confused today . Physical Examination: Vital Signs: When I saw the patient, blood pressure 118/57, pulse of 92, afebrile. Chest: Clear to auscultation. Heart: S1, S2. Regular. Abdomen: Soft. Colostomy. Extremities: No edema. Laboratory Data: WBC 24.6, H and H 11.1/37.2, platelet 255. Sodium 133, potassium 4.2, bicarb 21. BUN 26, creatinine 5.1, calcium 8.5. TSH 4.3. Current Medications: The patient on include cefepime, nystatin, Xifaxan, loratadine, Lovenox, lactul ose, Lasix 80, Zofran, levothyroxine, and hydrocodone. Assessment And Plan: 1.End-stage renal disease. We will maintain the patient on dialysis. The patient due for dialysis today. 2.Hypertension, on medication. 3.Urinary tract infection. Continue current antibiotic. Follow up with Infectious Disease. 4.Altered mental status. I am going to hold on pain medication. 5.Congestive heart failure. Looks to me euvolemic. I am going to decrease the Lasix to once daily, and we will follow up the patient. 6.Chronic obstructive pulmonary disease. Continue supportive treatment. 7.Polycythemia vera, stable. SAULO Voice ID: [id number] Report ID: [id number]
[2017-07-05] MEDS: ALBUTEROL 2.5 MG/3 ML NEB SOL NEB SCH ×4 (02:12→19:44)
[2017-07-05 05:21] LABS: Absolute Lymphocytes (CBC) 3.4 K/uL (0.7-4.9); Absolute Monocytes 5.1 K/uL (0.1-1.3); Absolute Neutrophil 11.9 K/uL (1.8-8.0); Eosinophils % 3.9 % (0-4.4); Hematocrit 36.5 % (39.6-49.0); Lymphocytes % 15.2 % (15.3-44.8); MCH 20.5 pg (27.0-35.0); MCV 68.4 fL (80-100); MPV 8.6 fL (7.6-11.3); Monocytes % 22.9 % (3.3-12.3); RBC Red Blood Cell Count 5.34 M/uL (4.33-5.43)
[2017-07-05 05:41] LABS: Albumin 1.6 g/dL (3.2-5.5); Potassium 3.5 mEq/L (3.6-5.0)
[2017-07-05] MEDS: LEVOTHYROXINE SOD 0.05 MG TABLET PO SCH (05:59)
[2017-07-05] MEDS: FUROSEMIDE 40 MG/4 ML VIAL IV SCH (08:42)
[2017-07-05] MEDS: Rifaximin 550 MG Tab PO SCH ×2 (08:42→20:47)
[2017-07-05] MEDS: LACTULOSE 20 GM/30 ML UCUP PO SCH ×2 (08:42→20:47)
[2017-07-05] MEDS: CEFEPIME 0.5 GM in NA CHLORIDE 0.9% 50 ML IV SCH (08:42)
[2017-07-05] MEDS: ASPIRIN EC 81 MG TAB PO SCH (08:43)
[2017-07-05] MEDS: GABAPENTIN 100 MG CAP PO SCH ×2 (08:43→20:47)
[2017-07-05] MEDS: LORATADINE 10 MG TAB PO SCH (08:43)
[2017-07-05] MEDS: RANITIDINE 150 MG TABLET PO SCH (08:43)
[2017-07-05] MEDS: HOME MED 1 EA UNK (Umeclidinium Bromide [Incruse Ellipta] 1 PUFF) PO SCH (08:44)
[2017-07-05] MEDS: SOD CHLORIDE 0.65% NASAL SPRAY NAS SCH ×2 (08:44→21:00)
[2017-07-05] MEDS ORDERED: predniSONE 5 MG TAB PO SCH (12:00)
[2017-07-05] MEDS: predniSONE 20 MG TAB PO SCH (13:19)
--- NOTE | 2017-07-05 13:21 | RAD REPORT ---
EXAM DESCRIPTION: RAD - Chest Single View - 07/05/2017 1:14 pm CLINICAL HISTORY: COPD, shortness of breath COMPARISON: July 02 TECHNIQUE: AP portable chest image was obtained 1300 hours . FINDINGS: No peripheral mass or consolidation seen. No failure findings identifiable. Mild prominenc e of the interstitial markings has not changed. Left subclavian defibrillator and a right-sided dialy sis catheter remain in place. Heart size is upper normal. Pulmonary vasculature within normal limits. The trachea is midline. No measurable pleural effusion and no pneumothorax. No gross bony abnormalit y seen. No acute aortic findings suspected. IMPRESSION: No acute cardiopulmonary process. Chest is similar to the July 02 study.
--- NOTE | 2017-07-05 15:40 | PN ---
Date of Progress Note: 07/05/2017 Subjective: The patient is still weak, complaining from swelling in his right elbow, barely sitting in bed. Physical Examination: Vital Signs: Blood pressure 112/59, pulse of 91, afebrile. Chest: Clear to auscultation. Heart: S1, S2. Systolic murmur. Abdomen: Soft, nontender. Colostomy. Extremities: No edema. Neuro: Resting tremor more on the left side. Laboratory Data: WBC 22.1, H and H 10.9/36.5, platelet 216. Sodium 133, potassium 3.5, bicarb 26, B UN 19, creatinine 4, GFR of 14, calcium 7.8. Culture was done yesterday, still pending. Urine cultu re on the 26, growing Pseudomonas aeruginosa. Current Medications: The patient on include, 1.Cefepime. 2.Nystatin. 3.Xifaxan. 4.Loratadine. 5.Lovenox. 6.Gabapentin. 7.Lasix 80 daily. 8.Lactulose. 9.Zofran. 10.Ranitidine. 11.Levothyroxine 50. 12.Allopurinol 100. 13.Melatonin. Assessment And Plan: 1.End-stage renal disease. Normal volume. I am going to continue the patient on dialysis. The [facility] is going to be due for dialysis tomorrow. We will monitor the patient. 2.Hypertension, controlled, optimal. Continue current medication. 3.Leukocytosis secondary to polycythemia vera. We will monitor. 4.Urinary tract infection. Continue ceftriaxone. 5.Altered mental status. CT negative. Continue PT/OT. Consider inpatient rehab. 6.Gouty arthritis on the right elbow. I am going to resume prednisone and we will follow up. 7.Congestive heart failure. Continue dialysis to establish better volume control. I am going to re peat chest x-ray to better evaluate his fluid status. We will arrange for dialysis tomorrow. MICHELLE/ABRIL Voice ID: [id number] Report ID: [id number]
--- NOTE | 2017-07-05 16:55 | PN ---
Date of Progress Note: 07/05/2017 History: The patient seen and examined. Chart reviewed and case discussed with RN and Dr. Giles. The patient is still very unsteady on his feet. His mental status is improved as is his tremor. T he patient reports significant pain in his right elbow joint. Review of Systems: Negative except as above. Medications: Reviewed. Physical Examination: Vital Signs: Temperature 98.2, heart rate 91, blood pressure 112/59, respirations 18, O2 100% on 2 L via nasal cannula. General: Awake, alert, oriented x3, in some mild distress. Elderly male, somewhat ill-appearing. CV: S1, S2. No murmurs. Regular rate and rhythm. Peripheral pulses present. Respiratory: Moving air well bilaterally. No wheezing. Abdomen: Abdomen is soft, nontender, nondistended. Positive bowel sounds. Extremities: No clubbing, cyanosis. No pedal edema. Musculoskeletal: The patient has right knee effusion and swelling of his right elbow. Skin: Abrasions on bilateral lower extremities, scalp hematoma. Neurologic: Nonfocal. Laboratory Data: Sodium 138, potassium 3.5, chloride 98, CO2 26, BUN 19, creatinine 4.18, glucose 70 , calcium 7.8, total bilirubin 0.5, AST 138, ALT 68, alkaline phosphatase 463, albumin 1.6. WBC 22.1 , H and H 10.9, 36.5, platelets 216. Repeat blood cultures pending. Stool occult negative. Urine c ulture shows Pseudomonas aeruginosa. Initial blood cultures are negative. Head CT scan from 07/2017 , personally reviewed, shows no acute intracranial abnormalities. Posterior small scalp hematoma. Assessment And Plan: A 71-year-old male with: 1.Sepsis. WBC improved. Procalcitonin is trending down, however, still elevated. 2.Urinary tract infection, acute cystitis without hematuria secondary to Pseudomonas. Continue cefe pime for now. 3.Status post fall. We will place patient on fall precautions. The patient did not do well with ph ysical therapy, very unsteady. The patient will likely need rehab. 4.Acute on chronic combined systolic and diastolic heart failure. We will continue IV Lasix. CHF g uidelines, EF 33%. 5.Status post AICD. 6.End-stage renal disease, on hemodialysis. 7.Hyponatremia, improved. 8.Diabetes mellitus type 2 with long-term use of insulin without complications. We will continue sl iding scale insulin. 9.Atrial fibrillation, paroxysmal, on aspirin. 10.Elevated liver enzymes secondary to congestive heart failure and amiodarone side effects. We liam l continue to monitor. We will anticipate slow recovery of the liver. 11.Elevated ammonia level, likely secondary to hepatic dysfunction. We will continue on lactulose. 12.Tremor, likely related to hepatic dysfunction, improved with lactulose. 13.Essential hypertension, stable. Plan: We will refer patient to inpatient rehab. Does not appear to be safe discharge to home. /ABRIL Voice ID: [id number] Report ID: [id number]
[2017-07-05] MEDS ORDERED: HYDROCODONE/APAP 7.5/325 MG TAB PO ONE (18:43)
[2017-07-05] MEDS: ALLOPURINOL 100 MG TAB PO SCH (20:47)
--- NOTE | 2017-07-05 21:30 | PN ---
Subjective: Today, Mr. Sánchez actually in the evening is doing fairly well, per his . He is more responsive now, although at times he has sundowners, but this afternoon, he was able to follow all c ommands appropriately. He communicated. There was some pain in his legs. There was continued to be a postural tremor associated with his end-stage renal disease and his elevated levels of ammonia. Mina willams has no new complaints. He has no seizure-like activity. He did have dialysis earlier today. Objective: Vital Signs: Blood pressure 110/57, pulse 95, respiratory rate 18, temperature 98.2, oxy gen saturation 94%. General: Mr. Sánchez is resting in bed. Musculoskeletal: He at rest has no distress and no pain. He does have some pain on palpation of his legs and there is a myoclonic type jerk when he moves, which resolves with activity. He has no foca l findings in face, arm, or leg evaluation. Laboratory Studies: Sodium 132, potassium 3.5, chloride 98. Creatinine 4.18. His ammonia level fro m yesterday was 69. Procalcitonin is elevated to 4.35. Chest x-ray done earlier today shows no acut e cardiopulmonary process. He is in similar to July 02 x-ray. Assessment: Mr. Sánchez is a 71-year-old patient with multifactorial encephalopathy including end-stag e renal disease, on hemodialysis. He has hepatic encephalopathy with elevated ammonia and toxic ence phalopathy from urinary tract infection. He is improving, although slowly and has become somewhat de bilitated. Plan: 1.The patient should have bed mobility exercises and again begin gingerly to resume physical therapy . He may not be able to withstand acute inpatient rehab, which demands 3 hours of physical therapy a day but may do better with longterm, where he can do 1 hour physical therapy a day and still have 24 hour care for nursing. 2.Comorbid medical conditions are managed by primary team including continued hemodialysis and antib iotics, include management along with electrolyte correction and treatment of his ammonia with lactul ose as needed. LB/MODL Voice ID: [id number] Report ID: [id number]
[2017-07-06] MEDS: ALBUTEROL 2.5 MG/3 ML NEB SOL NEB SCH ×4 (01:47→19:25)
[2017-07-06 05:19] LABS: Absolute Lymphocytes (CBC) 1.3 K/uL (0.7-4.9); Absolute Monocytes 0.6 K/uL (0.1-1.3); Absolute Neutrophil 11.9 K/uL (1.8-8.0); Basophils % 1.1 % (0-1.3); Hematocrit 36.3 % (39.6-49.0); MCH 20.4 pg (27.0-35.0); MCV 67.8 fL (80-100); MPV 8.5 fL (7.6-11.3); Monocytes % 4.1 % (3.3-12.3); RBC Red Blood Cell Count 5.35 M/uL (4.33-5.43)
[2017-07-06 05:46] LABS: Albumin 1.6 g/dL (3.2-5.5); Potassium 4.4 mEq/L (3.6-5.0); Protein, Total 5.3 g/dL (6.0-8.3)
[2017-07-06 05:57] LABS: Bilirubin Total 5.1 mg/dL (0.3-1.2)
[2017-07-06] MEDS: LEVOTHYROXINE SOD 0.05 MG TABLET PO SCH (06:29)
[2017-07-06 07:25] LABS: Anisocytosis 3+; Blood Morphology Comment NOTED (NOT SEEN); Hypochromasia 1+; Platelet Estimate ADEQ; Platelets, Giant PRESENT; Polychromasia 1+; Target Cells 1+
[2017-07-06 07:26] LABS: Ovalocytes 1+
[2017-07-06] MEDS: SOD CHLORIDE 0.65% NASAL SPRAY NAS SCH ×2 (09:00→21:00)
[2017-07-06] MEDS: FUROSEMIDE 40 MG/4 ML VIAL IV SCH (09:00)
[2017-07-06] MEDS: HOME MED 1 EA UNK (Umeclidinium Bromide [Incruse Ellipta] 1 PUFF) PO SCH (09:00)
[2017-07-06] MEDS: ASPIRIN EC 81 MG TAB PO SCH (13:02)
[2017-07-06] MEDS: LACTULOSE 20 GM/30 ML UCUP PO SCH ×2 (13:02→21:22)
[2017-07-06] MEDS: LORATADINE 10 MG TAB PO SCH (13:03)
[2017-07-06] MEDS: predniSONE 20 MG TAB PO SCH (13:03)
[2017-07-06] MEDS: CEFEPIME 0.5 GM in NA CHLORIDE 0.9% 50 ML IV SCH (13:04)
[2017-07-06] MEDS: Rifaximin 550 MG Tab PO SCH ×2 (13:04→21:23)
[2017-07-06] MEDS: GABAPENTIN 100 MG CAP PO SCH ×2 (13:04→21:23)
[2017-07-06] MEDS: RANITIDINE 150 MG TABLET PO SCH (13:05)
[2017-07-06] MEDS ORDERED: FUROSEMIDE 40 MG/4 ML VIAL IV SCH (14:39)
--- NOTE | 2017-07-06 18:04 | PN ---
Date of Progress Note: 07/06/2017 History: The patient seen and examined. Chart reviewed and case discussed with RN, katina He Dr.. The patient still having some acute distress with his positional tremor and having s ome difficulty ambulating. Review of Systems: Negative except as above. Medications: Reviewed. Physical Examination: Vital Signs: Temperature 97.8, heart rate 85, blood pressure 99/55, respirations 18, O2 94% on 2 L v ia nasal cannula. General: The awake, alert, oriented x3, in some mild distress. Elderly male, slightly ill appearing . CV: S1 and S2. No murmurs. Peripheral pulses present. Respiratory: Moving air well bilaterally. Gastrointestinal: Abdomen is soft, nontender, nondistended. Positive bowel sounds. Extremities: No clubbing, cyanosis, or edema. Skin: Multiple abrasions, some effusion on the right knee. Neuro: The patient has positional and postural tremors. Nonfocal exam. Speech is normal. Laboratory Data: Urine culture shows Pseudomonas aeruginosa. Repeat blood cultures negative to date . Laboratory Data: Sodium 132, potassium 4.4, chloride 96, CO2 24, BUN 30, creatinine 5.06, glucose 21 5, calcium 7.9, total bilirubin 5.1. AST 125, ALT 53, alkaline phosphatase 446. WBC 14, H and H 10. 9 and 36.3, platelets 208, neutrophils 84%. Assessment And Plan: A 71-year-old male with sepsis. WBC count 14,000, improving, secondary to urin megan tract infection. 1.Urinary tract infection, acute status without hematuria secondary to Pseudomonas. Continue cefepi me. 2.Status post fall. Continue PT. The patient will be referred to SNF. 3.Acute on chronic combined systolic and diastolic heart failure. Continue Lasix. Dose has been ad justed in CHF guidelines. EF 33%. 4.Status post AICD. 5.End-stage renal disease, on hemodialysis. 6.Hyponatremia, improved. 7.Diabetes mellitus type 2 with long-term use of insulin without complications. Continue sliding sc raul insulin. 8.Atrial fibrillation. Paroxysmal on aspirin. 9.Elevated liver enzymes secondary to congestive heart failure and amiodarone side effect. We will continue to monitor. 10.Elevated ammonia level secondary to hepatic dysfunction. Continue lactulose. 11.Positional postural tremor, noted to long-standing history of chronic kidney disease with hemodia lysis and hepatic dysfunction. Appreciate Dr. Granger's input. 12.Essential hypertension. Blood pressure on the low side. Plan: Discharge to SNF once accepted. MAGDA Voice ID: [id number] Report ID: [id number]
--- NOTE | 2017-07-06 20:19 | PN ---
Date of Progress Note: 07/06/2017 Subjective: The patient doing slightly better, still has a tremor, unable to ambulate. Physical Examination: Vital Signs: Blood pressure 106/62, pulse of 90, afebrile. Chest: Clear to auscultation. Heart: S1, S2. Regular. Abdomen: Soft, nontender. Extremities: No edema. Laboratory Data: WBC 14, H and H 10.9/36.3, platelets 208. Sodium 132, potassium 4.4, bicarb 24, BU N 30, creatinine 5.06, calcium 7.9. Medications: Current medications the patient is on includes; 1.Aspirin. 2.Cefepime. 3.Nystatin. 4.Xifaxan. 5.Loratadine. 6.Albumin. 7.Lasix 80 daily. 8.Zofran. 9.Gabapentin 200 b.i.d. 10.Ranitidine 300. 11.Prednisone 40 daily. Assessment And Plan: 1.End-stage renal disease, normal volume. Marginal low blood pressure. I am going to go ahead and decrease Lasix to 40. 2.Anemia, no need for JEANNIE. 3.Secondary hyperparathyroidism, binder on hold. 4.Altered mental status, possible secondary to sepsis. Hydrocodone has been discontinued. I going to decrease the gabapentin to 100. 5.Deconditioning with local tremor. Continue PT/OT. We will await for Neurology assessment. 6.Urinary tract infection. Continue current antibiotic. We will follow up with the primary. 7.Gout, response to prednisone. We will continue for today. Tomorrow we will down to his maintenan ce dose as 5 mg b.i.d. Case discussed with the patient and Dr. Medina. MICHELLE/ABRIL Voice ID: [id number] Report ID: [id number]
[2017-07-06] MEDS: ALLOPURINOL 100 MG TAB PO SCH (21:23)
[2017-07-07] MEDS: ALBUTEROL 2.5 MG/3 ML NEB SOL NEB SCH ×2 (01:07→07:23)
[2017-07-07 05:24] LABS: Hematocrit 36.7 % (39.6-49.0); MCH 20.3 pg (27.0-35.0); MCV 68.9 fL (80-100); MPV 8.8 fL (7.6-11.3); RBC Red Blood Cell Count 5.33 M/uL (4.33-5.43)
[2017-07-07 05:50] LABS: Albumin 1.8 g/dL (3.2-5.5); Potassium 4.1 mEq/L (3.6-5.0); Protein, Total 5.4 g/dL (6.0-8.3)
[2017-07-07] MEDS: LEVOTHYROXINE SOD 0.05 MG TABLET PO SCH (05:59)
[2017-07-07 06:00] LABS: Anisocytosis 3+; Blood Morphology Comment NOTED (NOT SEEN); Hypochromasia 1+; Macrocytosis SLIGHT; Platelet Estimate ADEQ; Platelets, Giant FEW; Polychromasia SLIGHT
[2017-07-07] MEDS: SOD CHLORIDE 0.65% NASAL SPRAY NAS SCH (09:00)
[2017-07-07] MEDS: HOME MED 1 EA UNK (Umeclidinium Bromide [Incruse Ellipta] 1 PUFF) PO SCH (09:00)
[2017-07-07] MEDS: CEFEPIME 0.5 GM in NA CHLORIDE 0.9% 50 ML IV SCH (09:26)
[2017-07-07] MEDS: ASPIRIN EC 81 MG TAB PO SCH (09:30)
[2017-07-07] MEDS: LACTULOSE 20 GM/30 ML UCUP PO SCH (09:30)
[2017-07-07] MEDS: LORATADINE 10 MG TAB PO SCH (09:30)
[2017-07-07] MEDS: predniSONE 20 MG TAB PO SCH (09:30)
[2017-07-07] MEDS: Rifaximin 550 MG Tab PO SCH (09:31)
[2017-07-07] MEDS: GABAPENTIN 100 MG CAP PO SCH (09:31)
[2017-07-07] MEDS: RANITIDINE 150 MG TABLET PO SCH (09:34)
[2017-07-07 09:50] VITALS: BP 95/56; TEMP 98.1
[2017-07-07 11:15] VITALS: O2SAT 90
--- NOTE | 2017-07-07 15:12 | PN ---
Date of Progress Note: 07/07/2017 Subjective: The patient seen and examined, chart reviewed, and case discussed with RN. The patient apparently last night was having some hallucinations. Had told the nurse that he wanted to hurt hims elf. The patient had experienced tis previously with steroids. The patient will be switched back to his home dose of steroid. When asked again, the patient stated that, he just wants to get out of [facility] and he has no intention of hurting himself or harming himself. He just wants to leave the hospital. Review of Systems: Negative except as above. Medications: Reviewed. Physical Examination: Vital Signs: Temperature 98.1, heart rate 86, blood pressure 95/56, respirations 18, and O2 97% on 2 L via nasal cannula. General: Awake, alert, oriented, in no acute distress. Elderly male. CV: S1, S2. No murmurs. Peripheral pulses present. Respiratory: Moving air well bilaterally. Gastrointestinal: Abdomen is soft, nontender, nondistended. Positive bowel sounds. Colostomy bag i n place. Extremities: No clubbing, cyanosis, edema. Skin: multiple abrasions on the lower extremities, healing. Musculoskeletal: Mild effusion on the left knee. Neurologic: Nonfocal. The patient does have some postural tremor. Laboratory Data: Sodium 130, potassium 4.1, chloride 97, CO2 25, BUN 23, creatinine 4.1, glucose 293 , calcium 7.8, AST 143, ALT 69, alkaline phosphatase was 40, ammonia 43, and albumin 1.8. WBC 21.2, H and H 10.8, 36.7, platelets 245, no neutrophils present. Repeat blood cultures negative to date. Urine culture showing Pseudomonas aeruginosa. Assessment: A 71-year-old male with; 1.Urinary tract infection, acute cystitis without hematuria secondary to Pseudomonas. The patient's treatment with cefepime has been completed. 2.Sepsis, improving. The patient's white count fluctuates secondary to his polycythemia. 3.Acute on chronic combined systolic and diastolic heart failure. Lasix dose adjusted. We will hol d this morning's dose due to hypotension. Ejection fraction is 33%. 4.Status post AICD. 5.End-stage renal disease, on hemodialysis. 6.Hyponatremia. Continue fluid restriction. 7.Polycythemia vera. 8.Diabetes mellitus type 2 with long-term use of insulin with hyperglycemia. We will adjust sliding scale insulin. Hyperglycemia secondary to steroids. 9.Atrial fibrillation, paroxysmal. Continue aspirin. 10.Elevated liver enzymes secondary to congestive heart failure, amiodarone side effect. 11.Hyperammonemia, improved with lactulose. 12.Positional tremor secondary to end-stage renal disease and hepatic dysfunction. We will continue with PT. 13.Essential hypertension. BP currently on the low side. We will hold blood pressure medication. 14.Steroid-induced leukocytosis. We will adjust steroid dose. 15.Acute delirium, resolved. The patient has some sundowning and some hallucinations. We will redu ce his dose of steroids back to home dose. Plan: Discharge to SNF today. MAGDA Voice ID: [id number] Report ID: [id number]
== END 2017-07-07 11:56 | DRG 871 ==
LOC: ER 10:44 → ERHOLD 12:11 → 2ND 14:13
PROVIDERS: ADMIT Family Medicine; ATTEND Family Medicine
PROC: 5A1D70Z Performance of Urinary Filtration, Intermittent, Less than 6 Hours Per Day (ICD-10-PCS; 2017-06-27)
PROC: 5A1D70Z Performance of Urinary Filtration, Intermittent, Less than 6 Hours Per Day (ICD-10-PCS; 2017-06-28)
PROC: 5A1D70Z Performance of Urinary Filtration, Intermittent, Less than 6 Hours Per Day (ICD-10-PCS; 2017-06-30)
PROC: 5A1D70Z Performance of Urinary Filtration, Intermittent, Less than 6 Hours Per Day (ICD-10-PCS; 2017-07-02)
PROC: 5A1D70Z Performance of Urinary Filtration, Intermittent, Less than 6 Hours Per Day (ICD-10-PCS; 2017-07-04)
PROC: 5A1D70Z Performance of Urinary Filtration, Intermittent, Less than 6 Hours Per Day (ICD-10-PCS; principal; 2017-07-06)
DX: A41.9 Sepsis, unspecified organism (principal); N18.6 End stage renal disease; I50.43 Acute on chronic combined systolic (congestive) and diastolic (congestive) heart failure; G93.41 Metabolic encephalopathy; I13.2 Hypertensive heart and chronic kidney disease with heart failure and with stage 5 chronic kidney disease, or end stage renal disease; E87.1 Hypo-osmolality and hyponatremia; N30.00 Acute cystitis without hematuria; E11.9 Type 2 diabetes mellitus without complications; J44.9 Chronic obstructive pulmonary disease, unspecified; I27.20 Pulmonary hypertension, unspecified; E11.22 Type 2 diabetes mellitus with diabetic chronic kidney disease; E87.5 Hyperkalemia; I48.0 Paroxysmal atrial fibrillation; B96.5 Pseudomonas (aeruginosa) (mallei) (pseudomallei) as the cause of diseases classified elsewhere; D45 Polycythemia vera; N25.0 Renal osteodystrophy; E78.5 Hyperlipidemia, unspecified; E03.9 Hypothyroidism, unspecified; M10.9 Gout, unspecified; Z99.2 Dependence on renal dialysis; Z95.810 Presence of automatic (implantable) cardiac defibrillator
CPT/HCPCS: 36415; 70450; 71045; 76700; 80048; 80053; 80069; 80074; 80076; 80202; 81003; 82140; 82274; 82533; 82550; 82553; 82962; 83605; 83690; 83735; 83880; 84100; 84145; 84439; 84443; 84484; 85025; 85610; 85730; 86704; 86706; 86803; 87040; 87070; 87077; 87081; 87086; 87088; 87186; 87340; 90935; 93005; 94640; 94760; 95816; 96361; 96365; 96375; 97163; 99285; J0692; J1650; J2150; J3370; J7030; J7512; P9047